=== PATIENT | female | born 1985 | race Caucasian/White ===

== ENCOUNTER 2020-06-08 01:18 | Outpatient (CLI) | payer OTHER, SELFPAY ==
[2020-06-08 18:35] LABS: SARS-CoV-2 RNA PCR Negative
== END 2020-06-08 01:19 | disposition home or self-care (01) ==
LOC: ANHCOVIDDT 01:19
PROVIDERS: Visit Provider Surgery Plastic and Reconstructive Surgery
DX: Z01.812 Encounter for preprocedural laboratory examination (principal); Z20.828 Contact with and (suspected) exposure to other viral communicable diseases
CPT/HCPCS: 87635; C9803; U0003

== ENCOUNTER 2020-06-10 06:04 | Day surgery (SDC) | payer OTHER, SELFPAY ==
[2020-05-31 10:35] VITALS: BMI 22.6
[2020-06-10] VITALS (8 sets, daily range): BP systolic 98–116; BP diastolic 72–86; PULSE 49–74; RESP 12–20; TEMP 36.4–36.5; O2SAT 92–100; BMI 24.5
[2020-06-10] MEDS: LACTATED RINGERS 1,000 ML 30 ML IV CONT ×2 (06:40→10:17)
--- NOTE | 2020-06-10 06:49 | WPDANESEPPF ---
Anes - Initial Pre Proc Eval Procedure: Operation Date: 06/10/20 07:30 Proposed Procedures p Bilateral Breast Implant Exchange - Jordin Oneil MD s Bilateral Breast Mastopexy - Jordin Oneil MD Date/Time: 06/10/20 06:49 Surgeon: Jordin Oneil MD Pre Op Diagnosis: Skin laxity Patient Data Age: 34 Gender: F Height: 5 ft 3.5 in Weight: 64 kg Last Vital Signs Temp 36.4 C L 06/10/20 06:21 Pulse 67 06/10/20 06:21 Resp 14 06/10/20 06:21 BP 111/80 06/10/20 06:21 Pulse Ox 92 06/10/20 06:21 Allergies Allergy/AdvReac Type Severity Reaction Status Date / Time No Known Allergies Allergy Verified 06/10/20 06:05 Home Medications Medication Instructions Recorded Confirmed Type No Home Medications 06/09/20 06/09/20 History Patient hx anesthesia problems: none Family hx anesthesia problems: none PMFSH Family History Family History Other Hypertension Social History Social History Smoking status: Never smoker Alcohol intake: never Alcohol use details: RARE ALCOHOL INTAKE Substance use: never Substance use type: does not use Living arrangements: alone Gender identity (if verbalized by the patient): Female Sexual Orientation (if Verbalized by the Patient): Straight or Heterosexual Spiritual care concerns: No Anes - Eval Final PreProcedure Day of Procedure 06/10/20 06:49 Patient weight: normal Heart: regular rate and rhythm Lungs: clear to auscultation Airway: Mallampati scale class II Neurological: alert and oriented Last oral intake: >/= 8 hours ASA classification: I Emergent: no Anesthetic plan: proceed Anesthesia type and monitoring: general LMA and standard monitoring Informed Consent: The patient's anesthetic plan and its attendant risks and benefits were discussed with the patient/family/POA. Questions were solicited and answers provided to the satisfaction of the patient/family/POA.
--- NOTE | 2020-06-10 07:12 | WPDHPUPDATE1 ---
History and Physical Update Update Date/Time: 06/10/20 07:12 History and Physical has been reviewed, including an updated exam of the patient. There are NO changes in the patient's condition. Risks, benefits, and alternatives have been discussed and questions answered. Patient agrees to proceed with procedure.
[2020-06-10] MEDS: ceFAZolin 2 GM/D5W 50 ML 2 GM/50 ML BAG IVPB (07:15)
[2020-06-10] MEDS: LIDO 1%/EPINEPHRINE 1:100,000 20 ML VIAL 30 ML INFILTRATE (07:50)
--- NOTE | 2020-06-10 10:06 | PM.PROC ---
Procedure Note - Detailed Date of procedure: 06/10/20 Pre-op diagnosis: Skin laxity History breast augmentation Post-op diagnosis: same Procedure performed: Patient was marked in the preoperative holding area with her verification. She was taken to the operating room placed supine on the operating room table. Anesthesia was provided by anesthesiology and prepped and draped in standard sterile fashion. Surgical time-out was taken. 1% lidocaine and 0.25% Marcaine with epinephrine was used to provide a field block. Tegaderm nipple Martinez were placed. I made a vertical incision along the planned vertical scar. Dissection was continued down until the implant was identified and this was removed. These were submuscular smooth implants. I irrigated with more than 3 L total volume of saline solution on TUR tubing. Verified hemostasis. I performed lateral popcorn capsulorrhaphy which she had significant more lateral migration on the left than she did on the right. Further we or narrowing her base diameter slightly as she did not like the with the her previous implants. Irrigated with triple antibiotic Betadine solution. Wash my gloves. Used a Rowell funnel in a no-touch technique in the implants were introduced into the pocket. This was closed with 2-0 Vicryl. I then tailor tacked the breast into place and removed the Tegaderm nipple Amrtinez. She was placed in a sitting position. I marked out my nipple-areolar complex at 42 mm. On the left this had to be widened slightly as she would have had a residual areola in the mastopexy scar. She has a significant asymmetry preoperatively with the left nipple lower than the right as well as more glandular ptosis on the left. I de-epithelialized the superior pedicles bilaterally. I removed the central keel of tissue left greater than the right. I de-epithelialized the inferior aspect and then closed using 2-0 Vicryl followed by 3-0 Monocryl in the vertical as well as around the areola and 3-0 strata fix on the IMF. This is followed by running subcuticular 4-0 Monocryl and tissue glue. Prior to final closure I did place her again in a sitting position to verify symmetry. Fluffs and a surgical bra were placed. Patient was taken the PACU without difficulty. All instrument sponge counts were correct at the end of the case. Implants: Natvelmae Inspira SoftTouch 310cc Right: REF SSM-310 [id number] Left: REF SSM-310 SN [id number] Anesthesia: GLMA Surgeon: Jordin Oneil MD Estimated blood loss (mL): 50 Drains: No Packing: No Pathology: none sent Complications: No immediate complications Condition: stable Disposition: PACU
[2020-06-10] MEDS: ONDANSETRON INJ 4 MG/2 ML VIAL IV PUSH (10:31)
[2020-06-10] MEDS: SCOPOLAMINE 1.5 MG PATCH TRANSDERM (10:35)
--- NOTE | 2020-07-01 07:18 | WPDANESPN ---
Anes - Prog Note Post-Op Date/Time: 07/01/20 07:18 Cardiovascular status: normal Respiratory status: normal Airway patency: baseline Mental status: baseline Post-Op hydration status: normal Vital Signs: Last Vital Signs Temp 36.5 C 06/10/20 10:17 Pulse 49 L 06/10/20 11:23 Resp 14 06/10/20 11:23 BP 116/79 06/10/20 11:23 Pulse Ox 100 06/10/20 11:23 Pain Score (VAS): 1 Post-procedural complaints: none Patient Feedback: Patient satisfied with anesthetic care. Other Findings: late entry
== END 2020-06-10 11:45 | disposition home or self-care (01) ==
PROVIDERS: Visit Provider Surgery Plastic and Reconstructive Surgery
PROC: (CPT 19342; principal; 2020-06-10 07:30)
PROC: (CPT 19316; 2020-06-10 07:30)
DX: N64.59 Other signs and symptoms in breast (principal); Z98.82 Breast implant status
CPT/HCPCS: 19316; 19340; 80305

== ENCOUNTER 2023-02-09 05:58 | Day surgery (SDC) | payer OTHER, SELFPAY ==
[2022-11-22 12:20] VITALS: BMI 23.0
[2023-01-31 09:19] VITALS: BMI 23.0
--- NOTE | 2023-02-08 15:38 | WPDANESEPPF ---
Anes - Initial Pre Proc Eval Procedure: Operation Date: 02/09/23 07:30 Proposed Procedures p Raising Right Areola - Jordin Oneil MD s Left Breast Implant Exchange - Jordin Oneil MD Date/Time: 02/08/23 15:38 Surgeon: Jordin Oneil MD Pre Op Diagnosis: History of Breast Augmentation Patient Data Age: 37 Gender: F Height: 1.6 m Weight: 59 kg Allergies Allergy/AdvReac Type Severity Reaction Status Date / Time No Known Allergies Allergy Verified 01/31/23 09:07 Home Medications Medication Instructions Recorded Confirmed Type ergocalciferol (vitamin D2) 1,250 1,250 mcg PO HS 01/31/23 01/31/23 History mcg (50,000 unit) capsule (Vitamin D2) fluoxetine 20 mg capsule 20 mg PO HS 01/31/23 01/31/23 History Patient hx anesthesia problems: none Family hx anesthesia problems: none Results Review: All pre-operative results and documents have been reviewed as part of the pre-operative evaluation. [facility] Past Medical History Medical History (Updated 02/08/23 @ 15:39 by Carlos London MD) Anxiety Surgical History Surgical History (Updated 02/08/23 @ 15:39 by Carlos London MD) History of breast augmentation Family History Family History Other Hypertension Social History Social History Smoking status: Never smoker Second hand tobacco smoke exposure: No Alcohol intake: current Drinks per week: 0 Alcohol use details: ONCE A MONTH Substance use: never Substance use type: does not use Living arrangements: with family Gender identity (if verbalized by the patient): Female Sexual Orientation (if Verbalized by the Patient): Straight or Heterosexual Spiritual care concerns: No Anes - Eval Final PreProcedure Day of Procedure 02/08/23 15:38 Patient weight: normal Heart: regular rate and rhythm Lungs: clear to auscultation Airway: Mallampati scale class II Neurological: alert and oriented Last oral intake: >/= 8 hours ASA classification: I Emergent: no Anesthetic plan: proceed Anesthesia type and monitoring: general LMA and standard monitoring Results Review: All pre-operative results and documents have been reviewed as part of the pre-operative evaluation. Informed Consent: The patient's anesthetic plan and its attendant risks and benefits were discussed with the patient/family/POA. Questions were solicited and answers provided to the satisfaction of the patient/family/POA.
[2023-02-09] VITALS (7 sets, daily range): BP systolic 106–118; BP diastolic 76–91; PULSE 62–84; RESP 14–20; TEMP 36.4–37.1; O2SAT 97–100
[2023-02-09] MEDS: SCOPOLAMINE 1.5 MG PATCH TRANSDERM (06:33)
[2023-02-09] MEDS: LACTATED RINGERS 1,000 ML 30 ML IV CONT ×2 (06:33→09:00)
--- NOTE | 2023-02-09 07:03 | WPDHPUPDATE1 ---
History and Physical Update Update Date/Time: 02/09/23 07:03 History and Physical has been reviewed, including an updated exam of the patient. There are NO changes in the patient's condition. Risks, benefits, and alternatives have been discussed and questions answered. Patient agrees to proceed with procedure.
--- NOTE | 2023-02-09 07:04 | W.PM.PROC2 ---
Procedure Note - Detailed Date of Procedure 02/09/23 Pre-op Diagnosis History of Breast Augmentation Post-op Diagnosis Same Procedure Performed 1. Raise right areola 2. Left breast implant exchange Surgeon Jordin Oneil MD Anesthesia General Findings Left previous implant: SSM-310 intact. New left implant: REF# [id number] Right areola superior pedicle. Description of Procedure Preoperatively the risks, benefits, alternatives were discussed in extensive detail. I wanted to be very realistic about the risks involved as well as expectations. I was very upfront that she will never have perfect symmetry and she states she understands this. I was clear about how we could actually make her worse. Answered all questions to satisfaction. Voiced a clear understanding. Consent obtained. She was taken the operating room placed supine on the operating room table. Anesthesia provided by anesthesiology and prepped and draped in a standard sterile fashion. Surgical time-out was taken. 1% lidocaine and 0.25% Marcaine with epinephrine was used to provide a field block. Tegaderm nipple mendoza were placed. Fifteen blade used to excise the previous left IMF scar central. Dissection was continued down until the capsule were identified and entered. I then copiously irrigated with 3 L of saline solution on TUR tubing. Verified strict hemostasis. I then irrigated with Betadine containing solution. Using a no-touch technique and a Rowell funnel the implant was introduced into the pocket. We used a couple implants to determine final size as I wasn't happy with first selection. Also secured the lateral fold with 2-0 quill. Verfied the size. This was closed with 2-0 PDS followed by 3-0 Monocryl and a running subcuticular 4-0 Monocryl followed by tissue glue. On the right breast we tailor tacked into placed based on pre-operative markings. Placed in a sitting position and marked the NAC at 38 mm. Placed supine. Depithelizied the superior pedicle. Closed with 3-0 Monocryl, running subcuticular 4-0 monocryl and tissue glue. Dressings were placed. She was woken taken to the PACU without difficulty. All instrument sponge counts were correct at the end of the case. Estimated Blood Loss 25 Drains No Packing No Pathology None sent Complications No immediate complications Condition Stable Disposition PACU
[2023-02-09] MEDS: TRANEXAMIC ACID 1,000 MG/10 ML AMPUL 1000 MG IV PUSH (07:28)
[2023-02-09] MEDS: ceFAZolin SODIUM 2 GM/20 ML SW SYRINGE IV PUSH (07:28)
[2023-02-09] MEDS: NACL 0.9% IRRIG POUR BOTTLE 900 ML, GENTAMICIN SULFATE INJ 160 MG, ceFAZolin 2 GM, POVI... IRRIGATION (07:59)
--- NOTE | 2023-02-09 09:21 | SUR.PHASEI ---
PT RESTING QUIETLY. STATES MILD DISCOMFORT, DENIES NEED FOR PAIN MEDS AT THIS TIME. PT GIVEN A FEW ICE CHIPS PER REQUEST. DENIES NAUSEA.
--- NOTE | 2023-02-09 10:30 | SUR.PHASEII ---
1010 pt states shes ready to go home/instruction provided/denies pain. anabelle. susan d/i
--- NOTE | 2023-02-09 14:46 | WPDANESPN ---
Anes - Prog Note Post-Op Date/Time: 02/09/23 14:46 Cardiovascular status: normal Respiratory status: normal Airway patency: baseline Mental status: baseline Post-Op hydration status: normal Vital Signs: Last Vital Signs Temp 36.4 C L 02/09/23 09:00 Pulse 65 02/09/23 10:12 Resp 20 02/09/23 10:12 BP 114/79 02/09/23 10:12 Pulse Ox 99 02/09/23 10:12 O2 Del Method Room Air 02/09/23 10:12 O2 Flow Rate 3 02/09/23 09:15 Pain Score (VAS): 1 I/O: Intake & Output 02/08/23 02/09/23 02/09/23 23:59 07:59 15:59 Intake Total 400 Balance 400 Post-procedural complaints: none Patient Feedback: Patient satisfied with anesthetic care.
== END 2023-02-09 10:25 | disposition home or self-care (01) ==
PROVIDERS: PCP Internal Medicine; Visit Provider Surgery Plastic and Reconstructive Surgery
PROC: (CPT 19316; principal; 2023-02-09 07:30)
PROC: (CPT 19342; 2023-02-09 07:30)
DX: Z41.1 Encounter for cosmetic surgery (principal)
CPT/HCPCS: 19342

== ENCOUNTER → 2023-11-12 15:18 | Outpatient (CLI) | payer BC, SELFPAY ==
--- NOTE | ~2023-11-12 | US_ITS ---
EXAMINATION: US transvaginal DATE: 11/12/2023 INDICATION: Assess IUD placement TECHNIQUE: Multiple endovaginal sonographic images of the pelvis were obtained. COMPARISON: None. FINDINGS: The uterus measures 9.7 x 4.4 x 5.6 cm. The endometrial complex measures 3 mm. The IUD is i n expected position.. The right ovary measures 3.7 x 1.8 x 3.3 cm. The left ovary measures 2.2 x 1.3 x 2.0 cm. There is normal vascular flow in the ovaries. There is no free fluid in the pelvis. IMPRESSION: 1. IUD in expected position. Reviewed, dictated and finalized at location [facility]. [employer]TAIN
== END ==
PROVIDERS: PCP Nurse Practitioner; Visit Provider Nurse Practitioner
DX: T83.32XA Displacement of intrauterine contraceptive device, initial encounter (principal)
CPT/HCPCS: 76830

== ENCOUNTER 2023-12-11 23:12 | Emergency (ER) | payer BC, SELFPAY ==
--- NOTE | ~2023-12-11 | XR_ITS ---
Portable chest x-ray Comparison: None Clinical History: Cough Findings: Lungs are clear, without focal consolidation or pleural effusion. Cardiomediastinal silho uette is unremarkable. Bones and soft tissues are unremarkable. Impression: Normal chest Reviewed, dictated and finalized at [facility]. HOE OPERATOR Impression: Normal chest
--- NOTE | 2023-12-11 23:17 | ECG_ITS ---
Measurements Intervals [place] Rate: 75 P: 57 WV: 151 QRS: 32 QRSD: 82 T: 74 QT: 369 QTc: 413 Interpretive Statements SINUS RHYTHM POSSIBLE LEFT ATRIAL ENLARGEMENT [-0.1mV P WAVE IN V1/V2] LOW QRS VOLTAGE IN PRECORDIAL LEADS [QRS DEFLECTION < 1.0 mV IN CHEST LEADS] SEPTAL MYOCARDIAL INFARCTION , PROBABLY OLD [40+ ms Q WAVE IN V1/V2] ABNORMAL ECG NO PREVIOUS ECG AVAILABLE FOR COMPARISON Electronically Signed On 12-12-2023 11:46:18 PILE TRIMMER by Adam Soto M.D.
[2023-12-11 23:21] VITALS: BP 116/74; PULSE 78; RESP 25; TEMP 36.8; O2SAT 100
[2023-12-12] VITALS (15 sets, daily range): BP systolic 104–113; BP diastolic 84–91; PULSE 72–98; RESP 12–20; O2SAT 90–100
[2023-12-12 00:11] LABS: Strep Group A RT-PCR NOT DETECTED (Negative)
--- NOTE | 2023-12-12 01:26 | ED.GENADULT ---
[facility] - General Adult General Chief complaint: Upper Respiratory Infection Stated complaint: sob, lost voice Time Seen by Provider: 12/12/23 01:17 Source: patient Mode of arrival: ambulatory Limitations: no limitations History of Present Illness HPI narrative: This is a 38-year-old female who presents to the ED with chief complaint of dyspnea and sore throat x2 days. Reports she was diagnosed with flu B recently. Initially started with just some congestion, body aches and chills and now has progressed to more shortness of breath, wheezing and cough. Reports I feel like I cannot get any air. ? Reports pain with inspiration. Denies any history of asthma. Denies any history of blood clot, chronic lung disease or heart disease. No history of immunosuppressive condition Related Data Home Medications Medication Instructions Recorded Confirmed ergocalciferol (vitamin D2) 1,250 1,250 mcg PO HS 01/31/23 02/09/23 mcg (50,000 unit) capsule (Vitamin D2) fluoxetine 20 mg capsule 20 mg PO HS 01/31/23 02/09/23 Allergies Allergy/AdvReac Type Severity Reaction Status Date / Time No Known Allergies Allergy Verified 12/11/23 23:27 Review of Systems Review of Systems: All systems as dictated in [facility] Past Medical History Medical History (Updated 12/12/23 @ 03:26 by Toni Wynn PA-C) Anxiety Surgical History Surgical History (Updated 02/08/23 @ 15:39 by Carlos London, ) History of breast augmentation Family History Family History Other Hypertension Social History Social History Smoking status: Never smoker Second hand tobacco smoke exposure: No Alcohol intake: current Drinks per week: 0 Alcohol use details: ONCE A MONTH Substance use: never Substance use type: does not use Living arrangements: with family Gender identity (if verbalized by the patient): Female Sexual Orientation (if Verbalized by the Patient): Straight or Heterosexual Spiritual care concerns: No Exam Narrative: GENERAL: Well-appearing, well-nourished, and in no acute distress. HEAD: Normocephalic, atraumatic. EYES: PERRLA and EOMI. ENT: Nares clear, no rhinorrhea or epistaxis. Mucous membranes moist. Oropharynx without tonsillar hypertrophy exudate or other lesions. NECK: Supple. No adenopathy or masses. CHEST: Mildly increased work of breathing. Slightly tachypneic. Coughing on exam. Diffuse expiratory wheezes throughout. Sats 100% room air. HEART: Regular rate and rhythm. No murmur heard. Normal peripheral pulses. ABDOMEN: Soft, nontender, nondistended, normal active bowel sounds. MSK: Normal range of motion. No edema. SKIN: Warm, dry, no rash. NEURO: Alert and oriented x3. No focal deficits. PSYCH: Normal mood and affect. Course Course Emergency Course: Re-evaluation: Wheezing and work of breathing has resolved after her long breathing treatment. Vital Signs Vital signs: Vital Signs Temperature 98.2 F 12/11/23 23:21 Pulse Rate 78 12/11/23 23:21 Respiratory Rate 25 H 12/11/23 23:21 Blood Pressure 116/74 12/11/23 23:21 Pulse Oximetry 100 12/11/23 23:21 Oxygen Delivery Room Air 12/11/23 23:21 Temperature 98.2 F 12/11/23 23:21 Pulse Rate 93 12/12/23 02:50 Respiratory Rate 16 12/12/23 02:50 Blood Pressure 107/89 12/12/23 01:16 Pulse Oximetry 90 12/12/23 02:15 Oxygen Delivery Room Air 12/11/23 23:21 Medical Decision Making MDM Narrative Medical decision making narrative: This is a 38-year-old female who presents to the ED after having positive flu B test and for chief complaint of shortness of breath and wheezing. Vitals show initial slight tachypnea but oxygen saturation is normal. Exam shows diffuse wheezing. EKG shows sinus rhythm without acute ischemic findings. Chest x-ray is unremarkable. White count is normal
[2023-12-12] MEDS: ALBUTEROL SULFATE NEB 2.5 MG/3 ML INH 10 MG INHALATION (01:32)
[2023-12-12] MEDS: IPRATROPIUM BR 0.02% INH SOLN 0.5 MG/2.5 ML VIAL 2 MG INHALATION (01:32)
[2023-12-12 02:48] LABS: Basophils Percent Auto 0.2 % (0.2-1.2); Eosinophils Percent Auto 0.3 % (0-4.4); Hematocrit 39.6 % (37.0-47.0); Hemoglobin 12.9 g/dL (12.0-15.0); Immature Granulocyte Absolute 0.02 K/mm3 (0.00-0.031); Immature Granulocyte Percent A 0.3 % (0-0.5); Lymphocytes Absolute Auto 1.52 K/mm3 (0.9-3.2); Lymphocytes Percent Auto 25.4 % (18.3-44.2); Mean Corpuscular HGB Conc 32.6 g/dl (32-36); Mean Corpuscular Hemoglobin 30.9 pg (26-34); Mean Platelet Volume 10.2 fl (7.4-10.4); Monocytes Absolute Auto 0.3 K/mm3 (0.1-0.6); Monocytes Percent Auto 5.5 % (2.6-8.5); Neutrophils Absolute Auto 4.1 K/mm3 (1.3-6.7); Neutrophils Percent Auto 68.3 % (45.5-73.1); Platelet Count Result 170 k/mm3 (150-375); Red Blood Count 4.17 M/mm3 (4.2-5.4); Red Cell Distribution Width 11.8 % (11.5-14.5)
[2023-12-12 02:53] LABS: Alanine Aminotransferase 37 U/L (6-35); Albumin Level 4.3 g/dL (3.5-5.1); Alkaline Phosphatase 60 U/L (38-126); Anion Gap 5 mmol/L (8-16); Aspartate Amino Transferase 39 U/L (14-36); Bilirubin,Total 0.4 mg/dL (0.2-1.3); Blood Urea Nitrogen 15 mg/dL (7-17); CRP 0.9 mg/dL (<1.0); Calcium 9.3 mg/dL (8.4-10.2); Carbon Dioxide 28 mmol/L (22-30); Chloride 104 mmol/L (98-107); Estimated CRCL calculation 95 ml/min; Estimated Glomerular Filt Rate > 60; Glucose 120 mg/dL (65-110); Potassium 3.7 mmol/L (3.4-5.0); Sodium 137 mmol/L (137-145)
[2023-12-12 04:20] LABS: Influenza A QL RT-PCR Negative (Negative); Influenza B QL RT-PCR Positive (Negative); RSV RNA, RT-PCR Negative (Negative); SARS-CoV-2 RNA PCR Negative (Negative)
== END 2023-12-12 04:04 | disposition home or self-care (01) ==
PROVIDERS: Emergency Medicine; Emergency Provider Physician Assistant; PCP Nurse Practitioner
DX: J06.9 Acute upper respiratory infection, unspecified (principal); J40 Bronchitis, not specified as acute or chronic; Z20.822 Contact with and (suspected) exposure to COVID-19; F41.9 Anxiety disorder, unspecified
CPT/HCPCS: 36415; 71045; 80053; 85025; 86140; 87637; 87651; 93005; 94640; 99283

== ENCOUNTER 2024-10-18 14:28 | Emergency (ER) | payer BC, SELFPAY ==
[2024-10-18] VITALS (14 sets, daily range): BP systolic 97–111; BP diastolic 74–87; PULSE 66–97; RESP 14–18; TEMP 36.5; O2SAT 91–100
--- NOTE | 2024-10-18 15:01 | ED_ITS ---
HPI - Nausea/Vomiting/Diarrhea General Chief complaint: Nausea/Vomiting/Diarrhea Stated complaint: diarrhea x 12 days Time Seen by Provider: 10/18/24 14:38 History of Present Illness HPI Narrative: 39-year-old female with no pertinent past medical history presenting to the emergency room with a chief complaint of diarrhea for last 12 days. She was recently treated with oral antibiotics including amoxicillin for a sinus infection, took 2 days of the antibiotics and then had to stop and she was developing diffuse watery diarrhea. She took antibiotics on the 7th and 8th of this month. She states she has been having voluminous watery diarrhea with some mucus in it since that date. Endorses a 9 lb weight loss. Intermittent cramping abdominal pain during the diarrhea. No history of IBS or inflammatory bowel disease. No abdominal surgeries sign appendix removal in childhood. Patient describes a foul odor and mucus and states that she was concerned about C diff based on her recent antibiotic use. She was getting stool studies done at her PCP's office however the insurance declined and her PCPs office was closed today and they were referred to the emergency department instead. But denies any melena, dark tarry stools or blood in the stools. No nausea, vomiting, fever, chills or back pain. Related Data Home Medications ?Medication ?Instructions ?Recorded ?Confirmed ?Last Taken ?Type ergocalciferol (vitamin D2) 1,250 1,250 mcg PO HS 01/31/23 02/09/23 01/30/23 History mcg (50,000 unit) capsule (Vitamin D2) fluoxetine 20 mg capsule 20 mg PO HS 01/31/23 02/09/23 01/30/23 History Allergies Allergy/AdvReac Type Severity Reaction Status Date / Time No Known Allergies Allergy Verified 10/18/24 14:41 Review of Systems 2 Review of Systems: As [facility] Past Medical History Medical History Anxiety Surgical History Surgical History History of breast augmentation Family History Family History Other Hypertension Social History Social History Smoking status: Never smoker Second hand tobacco smoke exposure: No Alcohol intake: current Drinks per week: 0 Alcohol use details: ONCE A MONTH Substance use: never Substance use type: does not use Living arrangements: with family Gender identity (if verbalized by the patient): Female Sexual Orientation (if Verbalized by the Patient): Straight or Heterosexual Spiritual care concerns: No Exam 2 Narrative: GENERAL: [Well-appearing, well-nourished, and in no acute distress.] HEAD: [Normocephalic, atraumatic.] EYES: [PERRLA and EOMI.] ENT: Nares clear, no rhinorrhea or epistaxis. Mucous membranes moist. NECK: Supple. CHEST: [Clear to auscultation. No respiratory distress.] HEART: [Regular rate and rhythm]. No murmur heard. [Normal peripheral pulses.] ABDOMEN: [Soft, nondistended], [nontender], [No rigidity or guarding] EXTREMITIES: Normal range of motion. [No edema.] SKIN: Warm, dry, no rash. NEURO: [No focal deficits]. Alert and oriented [x3.] PSYCH: [Normal mood and affect.] Course Vital Signs Vital signs: Vital Signs Temperature 36.5 C 10/18/24 14:30 Pulse Rate 97 10/18/24 14:30 Respiratory Rate 14 10/18/24 14:30 Blood Pressure 107/75 10/18/24 14:30 Pulse Oximetry 100 10/18/24 14:30 Oxygen Delivery Room Air 10/18/24 14:30 Temperature 36.5 C 10/18/24 14:30 Pulse Rate 80 10/18/24 14:38 Respiratory Rate 18 10/18/24 14:38 Blood Pressure 108/79 10/18/24 14:38 Pulse Oximetry 100 10/18/24 14:38 Oxygen Delivery Room Air 10/18/24 14:38 MDM - Nausea/Vomiting/Diarrhea MDM Narrative Medical decision making narrative: 39-year-old female presenting with diffuse watery diarrhea with mucus for last 12 days. Recently been on antibiotics for 2 days prior to the onset of her symptoms. Concerned that she has had C diff. No history of C diff before, no history of recent abdominal surgeries. No recent hospital visits or illnesses otherwise. Reassuring vital signs which he does appear slightly dehydrated. Blood pressure 107/75, no tachycardia, no tachypnea or fever. She has a soft nontender nondistended abdomen. Was trying to get outpatient stool studies at [facility] done but they stated the insurance would not cover it so she went to her PCP and their office was closed she was referred to the ED today. Patient was given fluid bolus for hydration, CBC, CMP, C diff panel and some stool studies were sent off including ova and parasites, calprotectin, culture. Blood work was reassuring without any leukocytosis or anemia. Normal electrolytes, normal renal function panel. Negative test. Patient's C diff panel came back negative. The remaining tests are send out and will take several days and I did tell this to the patient and she will have to request medical records or sign up for the patient portal to see the results and discuss them with her primary care provider which is located within the [facility] system. We will send the patient home with some loperamide for her diarrhea and encouraged hydration and a high-fiber diet. Patient is stable for discharge at this time. Differential Diagnosis Differential diagnosis: Likely traveler's diarrhea, food poisoning, gastroenteritis, clostridium difficile infection, drug-induced nausea and vomiting and dehydration Medical Records Attestation: I reviewed the patient's medical records. Lab Data Attestation: I reviewed the patient's lab results. 10/18/24 15:14 10/18/24 15:14 Labs: Lab Results 10/18/24 10/18/24 Range/Units 15:14 15:23 WBC 5.0 (4.5-10.0) K/mm3 RBC 4.73 (4.2-5.4) M/mm3 Hgb 14.7 (12.0-15.0) g/dL Hct 43.7 (37.0-47.0) % MCV 92.4 (80-100) fl MCH 31.1 (26-34) pg MCHC 33.6 (32-36) g/dl RDW 11.9 (11.5-14.5) % Plt Count 291 D (150-375) k/mm3 MPV 9.6 (7.4-10.4) fl Immature Gran % (Auto) 0.4 (0-0.5) % Neut % (Auto) 72.7 (45.5-73.1) % Lymph % (Auto) 19.1 (18.3-44.2) % Wharton % (Auto) 6.6 (2.6-8.5) % Eos % (Auto) 0.6 (0-4.4) % Baso % (Auto) 0.6 (0.2-1.2) % Lymph # (Auto) 0.96 (0.9-3.2) K/mm3 Wharton # (Auto) 0.3 (0.1-0.6) K/mm3 Eos # (Auto) 0.0 (0-0.3) K/mm3 Baso # (Auto) 0.0 (0.0-0.1) K/mm3 Abs Immat Gran (auto) 0.02 (0.00-0.031) K/mm3 Absolute Neuts (auto) 3.7 (1.3-6.7) K/mm3 Absolute Nucleated RBC 0.000 (0.0-0.012) K/mm3 Nucleated RBC % 0.0 (0.0-0.2) % Sodium 139 (137-145) mmol/L Potassium 3.4 (3.4-5.0) mmol/L Chloride 101 (98-107) mmol/L Carbon Dioxide 29 (22-30) mmol/L Anion Gap 9 (4-12) mmol/L BUN 14 (7-17) mg/dL Creatinine 0.60 L (0.7-1.0) mg/dL Estim Creat Clear Calc 100 ml/min Estimated GFR > 60 (59 - ) Glucose 110 (65-110) mg/dL Calcium 10.1 (8.4-10.2) mg/dL Total Bilirubin 0.6 (0.2-1.3) mg/dL AST 63 H (14-36) U/L ALT 78 H (6-35) U/L Alkaline Phosphatase 69 (38-126) U/L Total Protein 9.0 H (6.3-8.2) g/dL Albumin 4.9 (3.5-5.1) g/dL Lipase 76 (23-300) U/L POC Urine HCG, Qual Negative (Negative) Stool Calprotectin Cancelled Stool Rotavirus Antigen Cancelled C. difficile (PCR) Negative (NEGATIVE) Discharge Plan Discharge Clinical Impression: Diarrhea Patient Disposition: Home, Self-Care Condition: Stable Instructions: Antibiotic Form, Loperamide (By mouth), Acute Diarrhea (ED), Nutrition Tips for Relief of Diarrhea (ED) Additional Instructions: Your stool studies are send outs and will need to be followed up with her primary care provider. Either sign up for the patient portal or request them from medical records. Your C diff panel was negative. Your diarrhea still could be secondary to recent antibiotics as it does upset the GI tract but your primary care provider will have to continue investigating outpatient. We will send you home with some loperamide for symptom control. Return with any new or worsening concerns at any time. Patient Language: Egyptian Prescriptions: New loperamide [Anti-Diarrheal (loperamide)] 2 mg capsule 2 mg PO Q6H PRN (Reason: loose stool) Qty: 14 0RF No Action albuterol sulfate 90 mcg/actuation HFA aerosol inhaler 2 puff inhalation QID PRN (Reason: shortness of breath or wheezing) Qty: 6.7 0RF methylprednisolone [Methylpred DP] 4 mg tablets,dose pack See Rx Instructions .ROUTE .COMPLEX Qty: 21 0RF Rx Instructions: orally per package directions ergocalciferol (vitamin D2) [Vitamin D2] 1,250 mcg (50,000 unit) capsule 1,250 mcg PO HS fluoxetine 20 mg capsule 20 mg PO HS Follow-up/Referrals: Arik,MD Dorian [Primary Care Provider] - Time of Disposition: 18:11
[2024-10-18] MEDS: LACTATED RINGERS 1,000 ML 999 ML IV CONT (15:12)
[2024-10-18 15:23] LABS: Basophils Percent Auto 0.6 % (0.2-1.2); Eosinophils Percent Auto 0.6 % (0-4.4); Hematocrit 43.7 % (37.0-47.0); Hemoglobin 14.7 g/dL (12.0-15.0); Immature Granulocyte Absolute 0.02 K/mm3 (0.00-0.031); Immature Granulocyte Percent A 0.4 % (0-0.5); Lymphocytes Absolute Auto 0.96 K/mm3 (0.9-3.2); Lymphocytes Percent Auto 19.1 % (18.3-44.2); Mean Corpuscular HGB Conc 33.6 g/dl (32-36); Mean Corpuscular Hemoglobin 31.1 pg (26-34); Mean Corpuscular Volume 92.4 fl (80-100); Mean Platelet Volume 9.6 fl (7.4-10.4); Monocytes Absolute Auto 0.3 K/mm3 (0.1-0.6); Monocytes Percent Auto 6.6 % (2.6-8.5); Neutrophils Absolute Auto 3.7 K/mm3 (1.3-6.7); Neutrophils Percent Auto 72.7 % (45.5-73.1); Platelet Count Result 291 k/mm3 (150-375); Red Blood Count 4.73 M/mm3 (4.2-5.4); Red Cell Distribution Width 11.9 % (11.5-14.5)
[2024-10-18 15:24] LABS: BEDSIDEPREGUCG Negative (Negative)
[2024-10-18 15:37] LABS: Alanine Aminotransferase 78 U/L (6-35); Albumin Level 4.9 g/dL (3.5-5.1); Alkaline Phosphatase 69 U/L (38-126); Anion Gap 9 mmol/L (4-12); Aspartate Amino Transferase 63 U/L (14-36); Bilirubin,Total 0.6 mg/dL (0.2-1.3); Blood Urea Nitrogen 14 mg/dL (7-17); Calcium 10.1 mg/dL (8.4-10.2); Carbon Dioxide 29 mmol/L (22-30); Chloride 101 mmol/L (98-107); Estimated CRCL calculation 100 ml/min; Estimated Glomerular Filt Rate > 60; Glucose 110 mg/dL (65-110); Lipase 76 U/L (23-300); Potassium 3.4 mmol/L (3.4-5.0); Sodium 139 mmol/L (137-145)
[2024-10-18 18:02] LABS: Toxigenic C. Diff NEGATIVE (NEGATIVE)
--- OUTSIDE RECORDS SUMMARY | 2024-10-25 22:32 | XMS_ITS | Encounter Summary ---
Author Organization [facility] Address [address] [place] [address] Care Team Providers Care Tug Boat Captain Name Role Phone Unknown, Notinfile Primary Care Provider Unavail able Encounter Details Date Type Department Care Team (Late st Contact Info) Description 04/12/2020 Telephone [facility] Orthopedics and Sports Medicine [address] [facility] [address] [address] Alessia Maravilla MA Social History Tobacco Use Types Packs/Day Years Used Date Smoking Tobacco: Never Smokeless Tobacco: Never Comments Unknown Sex and Gender Information Value Date Recorded Sex Assigned at Not on file Legal Sex Female 2:40 PM CDT Gender Identity Not on file Sexual Orientation Not on file documented as of this encounter Miscellaneous Notes * Telephone Encounter - Alessia Maravilla MA - 04/14/2020 11:54 AM CDT Called patient, had to leave a message. * Telephone Encounter - Lillian Garcia - 04/13/2020 8:34 AM CDT Please have her drop of her disc thank you * Telephone Encounter - Alessia Maravilla MA - 04/12/2020 4:14 PM CDT Patient called and would like her MRI results? Didn't know if you wanted her to drop off disc or just go off Report? Please advise. documented in this encounter Plan of Treatment Not on file documented as of this encounter Visit Diagnoses Not on filedocumented in this encounter Care Teams Tug Boat Captain Relationship Specialty Start Date End Date Unknown, Notinfile PCP - General 03/25/20 12/07/23 documented as of this encounter
--- OUTSIDE RECORDS SUMMARY | 2024-10-25 22:32 | XMS_ITS | Encounter Summary ---
Author Organization [facility] Address [address] [place] [address] Care Team Providers Care Cytogeneticist Name Role Phone Unknown, Notinfile Primary Care Provider Unavail able Unknown, Notinfile Unavailable Unavailable Encounter Details Date Type Department Care Team (Latest Contact Info) Description 10/04/2024 12:47 PM ROLLOUT MANAGER - 10/04/2024 11:59 PM ROLLOUT MANAGER Hospital Encounter [address] [address] Discharge Disposition: Discharge to home or self care Social History Tobacco Use Types Packs/Day Years Used Date Smoking Tobacco: Never Smokeless Tobacco: Never Personal Safety Answer Date Recorded Getting School Help Needed Not on file 12/08 Comments Unknown Sex and Gender Information Value Date Recorded Sex Assigned at Not on file Legal Sex Female 2:40 PM CDT Gender Identity Not on file Sexual Orientation Not on file documented as of this encounter Medications at Time of Discharge ALPRAZolam (XANAX) 2 mg tablet 12/05/2023 benzonatate (TESSALON) 100 mg capsuleIndication s:Cough Take 1 capsule (100 mg total) by mouth 3 (three) times a day as needed for cough 42 capsule 10/04/2024 FLUoxetine (PROzac) 20 mg capsule Take 1 capsule (20 mg total) by mouth daily amoxicillin-clavu lanate (AUGMENTIN) 875-125 mg per tabletIndications :Acute non-recurrent maxillary sinusitis Take 1 tablet by mouth 2 (two) times a day for 10 days 20 tablet 10/04/2024 10/14/2024 documented as of this encounter Discharge Disposition Disposition Code Departure Means Destination Discharge to home or self care documented in this encounter Plan of Treatment Not on file documented as of this encounter Procedures Procedure Name Priority Date/Time Associated Diagnosis Comments THROAT CULTURE Routine 10/04/2024 12:47 PM ROLLOUT MANAGER documented in this encounter Results * Throat culture Throat (10/04/2024 12:47 PM ROLLOUT MANAGER) Report Final Report: No growth of pathogens. Comment:Testing performed by : [facility], [address] [place]., [address] Throat 10/04/2024 12:4 7 PM ROLLOUT MANAGER 10/04/2024 11:50 PM ROLLOUT MANAGER Narrative ALINA Boland 10/06/2024 10:08 AM ROLLOUT MANAGER Testing performed by [facility] Microbiology Laboratory ([phone]). Sameera Guerrero NP LAB MICROBIOLOGY - GENERAL ORDERABLES Final Result ALINA [address] Department [place] [address] documented in this encounter Visit Diagnoses Not on filedocumented in this encounter Additional Health Concerns Infection Onset Date Last Indicated Resolved Time COVID: Suspected 10/04/2024 10/04/2024 10/05/2024 3:05 AM ROLLOUT MANAGER documented as of this encounter Care Teams Cytogeneticist Relationship Specialty Start Date End Date Unknown, Notinfile PCP - General 12/08/23 Unknown, Notinfile 12/08/23 documented as of this encounter
--- OUTSIDE RECORDS SUMMARY | 2024-10-25 22:32 | XMS_ITS | Referral Summary ---
Author Organization [address] [address] Care Team Providers Care Dredgemaster Name Role Phone Unknown, Notinfile Primary Care Provider Unavail able Unknown, Notinfile Unavailable Unavailable Encounters Date Type Department Care Team Description 10/04/2024 12:47 PM EVENT STAFF - 10/04/2024 11:59 PM EVENT STAFF [place] [address] Discharge Disposition: Discharge to home or self care 10/04/2024 12:15 PM EVENT STAFF Office Visit [facility] at [address] [address] Sameera Guerrero NP Acute cough (Primary Dx); Acute non-recurrent maxillary sinusitis from Last 3 Months Allergies No known active allergies Medications ALPRAZolam (XANAX) 2 mg tablet 12/05/2023 Active FLUoxetine (PROzac) 20 mg capsule Take 1 capsule (20 mg total) by mouth daily Active benzonatate (TESSALON) 100 mg capsuleIndicati ons:Cough Take 1 capsule (100 mg total) by mouth 3 (three) times a day as needed for cough 42 capsule 10/04/2024 Active amoxicillin-cla vulanate (AUGMENTIN) 875-125 mg per tabletIndicatio ns:Acute non-recurrent maxillary sinusitis Take 1 tablet by mouth 2 (two) times a day for 10 days 20 tablet 10/04/2024 10/14/20 24 Active Problems No known active problems Social History Tobacco Use Types Packs/Day Years Used Date Smoking Tobacco: Never Smokeless Tobacco: Never Personal Safety Answer Date Recorded Getting School Help Needed Not on file 12/08 Comments Unknown Sex and Gender Information Value Date Recorded Sex Assigned at Not on file Legal Sex Female 2:40 PM CDT Gender Identity Not on file Sexual Orientation Not on file Last Filed Vital Signs Vital Sign Reading Time Taken Comments Blood Pressure 116/76 10/04/2024 12:28 PM EVENT STAFF Pulse 79 10/04/2024 12:28 PM EVENT STAFF Temperature 36.7 ??C (98.1 ??F) 10/04/2024 12:[address] Respiratory Rate 16 10/04/2024 12:28 PM EVENT STAFF Oxygen Saturation 99% 10/04/2024 12:28 PM EVENT STAFF Inhaled Oxygen Concentration - - Weight 60.3 kg (133 lb) 10/04/2024 12:28 PM EVENT STAFF Height 161.3 cm (5' 3.5 ) 10/04/2024 12:28 PM CS T Body Mass Index 23.19 10/04/2024 12:28 PM EVENT STAFF Plan of Treatment Not on file Procedures Procedure Name Priority Date/Time Associated Diagnosis Comments THROAT CULTURE Routine 10/04/2024 12:47 PM EVENT STAFF POCT RAPID STREP Routine 10/04/2024 12:4 0 PM EVENT STAFF Acute non-recurrent maxillary sinusitis POC INFLUENZA A/B, COVID-19 ANTIGEN Routine 10/04/2024 12:39 PM EVENT STAFF Acute non-recurrent maxillary sinusitis from Last 3 Months Results * Throat culture Throat (10/04/2024 12:47 PM EVENT STAFF) Report Final Report: No growth of pathogens. Comment:Testing performed by : [facility], [address], [place]., [address] Throat 10/04/2024 12:4 7 PM EVENT STAFF 10/04/2024 11:50 PM EVENT STAFF Narrative BASIMNER CH - 10/06/2024 10:08 AM EVENT STAFF Testing performed by [facility]biology Laboratory ([phone]). Sameera Guerrero NP LAB MICROBIOLOGY - GENERAL ORDERABLES Final Result ALINA BARRETT [address] Department [place] [address] * POCT rapid strep A (10/04/2024 12:40 PM EVENT STAFF) Rapid Strep A, POC Negative Negative Swab 10/04/2024 12:4 0 PM EVENT STAFF Sameera Guerrero PHARMACOMETRICIAN POINT OF CARE TEST ORDERAB LES Final Result * POC Influenza A/B, COVID-19 antigen (10/04/2024 12:39 PM EVENT STAFF) Influenza A Ag, POC Negative Negative [facility] Influenza B Ag, POC Negative Negative [facility] COVID-19 Ag POC Presumptive Negative Presumptive Negative, Invalid [facility] Nasal 10/04/2024 12:3 9 PM EVENT STAFF Sameera Guerrero PHARMACOMETRICIAN POINT OF CARE TEST ORDERAB LES Final Result Performing Organization Address City/[facility]/ZIP Co de Phone Number [facility] [address] [place] [address], [facility] from Last 3 Months Insurance [place] Care Teams Dredgemaster Relationship Specialty Start Date End Date Unknown, Notinfile PCP - General 12/08/23 Unknown, Notinfile 12/08/23
--- OUTSIDE RECORDS SUMMARY | 2024-10-25 22:32 | XMS_ITS | Clinical Summary ---
Author Organization [address] Address [address] [place] [address] Care Team Providers Care External Grinder Name Role Phone Unknown, Notinfile Primary Care Provider Unavail able Unknown, Notinfile Unavailable Unavailable Allergies No known active allergies Medications ALPRAZolam [...] 24 Active Problems No known active problems Encounters Date Type Department Care Team Description 10/04/2024 12:47 PM ADVERTISING PRODUCTION MANAGER - 10/04/2024 11:59 PM ADVERTISING PRODUCTION MANAGER Hospital Encounter [address] [address] Discharge Disposition: Discharge to home or self care 10/04/2024 12:15 PM ADVERTISING PRODUCTION MANAGER Office Visit [facility] Care at [address] [address] Sameera Guerrero NP Acute cough (Primary Dx); Acute non-recurrent maxillary sinusitis from Last 3 Months Surgical History Surgery Date Site/Laterality Comments APPENDECTOMY BREAST BIOPSY Family History Medical History Relation Name Comments Heart disease Other Hypertension Other Relation Name Status Comments Other Social History Tobacco Use Types Packs/Day Years Used Date Smoking Tobacco: Never Smokeless Tobacco: Never Personal Safety Answer Date Recorded Getting School Help Needed Not on file 12/08 Comments Unknown Sex and Gender Information Value Date Recorded Sex Assigned at Not on file Legal Sex Female 2:40 PM CDT Gender Identity Not on file Sexual Orientation Not on file Obstetrics History Last Filed Vital Signs Vital Sign Reading Time Taken Comments Blood Pressure 116/76 10/04/2024 12:28 PM ADVERTISING PRODUCTION MANAGER Pulse 79 10/04/2024 12:28 PM ADVERTISING PRODUCTION MANAGER Temperature 36.7 ??C (98.1 ??F) 10/04/2024 12:[address] Respiratory Rate 16 10/04/2024 12:28 PM ADVERTISING PRODUCTION MANAGER Oxygen Saturation 99% 10/04/2024 12:28 PM ADVERTISING PRODUCTION MANAGER Inhaled Oxygen Concentration - - Weight 60.3 kg (133 lb) 10/04/2024 12:28 PM ADVERTISING PRODUCTION MANAGER Height 161.3 cm (5' 3.5 ) 10/04/2024 12:28 PM CS T Body Mass Index 23.19 10/04/2024 12:28 PM ADVERTISING PRODUCTION MANAGER Plan of Treatment Health Maintenance Due Date Last Done Comments Depression Screening 1987 Hepatitis C Screening 1987 Varicella Vaccines (1 of 2 - 13+ 2-dose series) 2000 Hepatitis B Screening 2005 Regular Well Visit/Exam 18-64 2005 Cervical Cancer Screening 06/20/2022 06/20/2021 Influenza Vaccine (#1) 2024 DTaP/Tdap/Td Vaccine (2 - Td or Tdap) 04/18/2031 04/18/2021 HPV Vaccines Aged Out No longer eligi ble based on patient's age to complete this topic Pneumococcal vaccine <65 Aged Out No longer eligible based on patient's age to complete this topic Procedures Procedure Name Priority Date/Time Associated Diagnosis Comments THROAT CULTURE Routine 10/04/2024 12:47 PM ADVERTISING PRODUCTION MANAGER POCT RAPID STREP Routine 10/04/2024 12:4 0 PM ADVERTISING PRODUCTION MANAGER Acute non-recurrent maxillary sinusitis POC INFLUENZA A/B, COVID-19 ANTIGEN Routine 10/04/2024 12:39 PM ADVERTISING PRODUCTION MANAGER Acute non-recurrent maxillary sinusitis from Last 3 Months Results * Throat culture Throat (10/04/2024 12:47 PM ADVERTISING PRODUCTION MANAGER) Report Final Report: No growth of pathogens. Comment:Testing performed by : [facility], [address], [place]., [address] Throat 10/04/2024 12:4 7 PM ADVERTISING PRODUCTION MANAGER 10/04/2024 11:50 PM ADVERTISING PRODUCTION MANAGER Narrative ALINA BARRETT - 10/06/2024 10:08 AM ADVERTISING PRODUCTION MANAGER Testing performed by [facility] ([phone]). Sameera Guerrero NP LAB MICROBIOLOGY - GENERAL ORDERABLES Final Result [facility] [address] [place] [address] * POCT rapid strep A (10/04/2024 12:40 PM ADVERTISING PRODUCTION MANAGER) Rapid Strep A, POC Negative Negative Swab 10/04/2024 12:4 0 PM ADVERTISING PRODUCTION MANAGER Sameera Guerrero WOODWORKING MACHINE FEEDER POINT OF CARE TEST ORDERAB LES Final Result * POC Influenza A/B, COVID-19 antigen (10/04/2024 12:39 PM ADVERTISING PRODUCTION MANAGER) Influenza A Ag, POC Negative Negative [facility] Influenza B Ag, POC Negative Negative [facility] COVID-19 Ag POC Presumptive Negative Presumptive Negative, Invalid [facility] Nasal 10/04/2024 12:3 9 PM ADVERTISING PRODUCTION MANAGER Sameera Guerrero WOODWORKING MACHINE FEEDER POINT OF CARE TEST ORDERAB LES Final Result [facility] [address] [place] [address], [facility] from Last 3 Months Insurance [place] Care Teams External Grinder Relationship Specialty Start Date End Date Unknown, Notinfile PCP - General 12/08/23 Unknown, Notinfile 12/08/23
--- OUTSIDE RECORDS SUMMARY | 2024-10-25 22:32 | XMS_ITS | Encounter Summary ---
Author Organization [facility] Healthcare Address [address] [place] [id number] Care Team Providers Care Senior Clinical Study Manager Name Role Phone Unknown, Notinfile Primary Care Provider Unavail able Unknown, Notinfile Unavailable Unavailable Reason for Visit * Reason Comments Cough Present x 5 days Nasal Congestion Sore Throat Encounter Details Date Type Department Care Team (Late st Contact Info) Description 10/04/2024 12:15 PM NUTRITION AIDE Office Visit [facility] at [address] [phone] Sameera Guerrero NP [address] [place] [address] [phone] Acute cough (Primary Dx); Acute non-recurrent maxillary sinusitis Social History Tobacco Use Types Packs/Day Years [...] on file documented as of this encounter Last Filed Vital Signs Vital Sign Reading Time Taken Comments Blood Pressure 116/76 10/04/2024 12:28 PM NUTRITION AIDE Pulse 79 10/04/2024 12:28 PM NUTRITION AIDE Temperature 36.7 ??C (98.1 ??F) 10/04/2024 12:[address] Respiratory Rate 16 10/04/2024 12:28 PM NUTRITION AIDE Oxygen Saturation 99% 10/04/2024 12:28 PM NUTRITION AIDE Inhaled Oxygen Concentration - - Weight 60.3 kg (133 lb) 10/04/2024 12:28 PM NUTRITION AIDE Height 161.3 cm (5' 3.5 ) 10/04/2024 12:28 PM CS T Body Mass Index 23.19 10/04/2024 12:28 PM NUTRITION AIDE documented in this encounter Patient Instructions * Patient Instructions* Sameera Guerrero NP - 10/04/2024 12:15 PM NUTRITION AIDE If you have no improvement or worsening of your symptoms, please follow up with your Primary Care Provider, [facility] and or Emergency Room. I strive to provide you with EXCELLENT service. You may receive a survey after your visit today. If you cannot rate your experience as EXCELLENT, please let us know how we can improve and better meet your needs. Thank you for choosing [facility]! It was my pleasure to see you today, I hope you feel better soon! Sameera Guerrero CONSUMER LOAN MANAGER ITION AIDE * Attachments The following attachments cannot be sent through Care Everywhere. * Sinusitis (AfterCare(R) Instructions(ER/ED)) (Tunisian) documented in this encounter Ordered Prescriptions Prescription Sig Dispense Quantity Refills Last Filled Start Date End Date benzonatate (TESSALON) 100 mg capsuleIndications :Cough Take 1 capsule (100 mg total) by mouth 3 (three) times a day as needed for cough 42 capsule 10/04/2024 amoxicillin-clavul anate (AUGMENTIN) 875-125 mg per tabletIndications: Acute non-recurrent maxillary sinusitis Take 1 tablet by mouth 2 (two) times a day for 10 days 20 tablet 10/04/2024 4 documented in this encounter Progress Notes * Sameera Guerrero NP - 10/04/2024 12:15 PM CST Images from the original note were not included. Subjective/Objective Patient ID: Amy Longoria is a 39 y.o. female. Chief Complaint Cough (Present x 5 days//), Nasal Congestion (/), and Sore Throat 39 year old female patient presents today with complaints of cough, non productive, chest congestion, nasal congestion, and sore throat x 5 days. Denies fever. Denies recent sick contacts. Denies chronic illness. Reports otc dayquil/nyquil. Cough Associated symptoms include a sore throat. Sore Throat Associated symptoms include coughing. Review of Systems HENT: Positive for sore throat. Respiratory: Positive for cough. All other systems reviewed and are negative. Physical Exam Vitals reviewed. Constitutional: Appearance: Normal appearance. She is normal weight. She is not ill-appearing. HENT: Head: Normocephalic. Right Ear: Ear canal and external ear normal. A middle ear effusion (serous) is present. Left Ear: Ear canal and external ear normal. A middle ear effusion (serous) is present. Nose: Right Turbinates: Enlarged. Left Turbinates: Enlarged. Right Sinus: Maxillary sinus tenderness and frontal sinus tenderness present. Left Sinus: Maxillary sinus tenderness and frontal sinus tenderness present. Mouth/Throat: Mouth: Mucous membranes are moist. Pharynx: Oropharynx is clear. Eyes: Pupils: Pupils are equal, round, and reactive to light. Cardiovascular: Rate and Rhythm: Normal rate and regular rhythm. Pulses: Normal pulses. Heart sounds: Normal heart sounds. Pulmonary: Effort: Pulmonary effort is normal. Breath sounds: Normal breath sounds. Musculoskeletal: General: Normal range of motion. Cervical back: Normal range of motion. Skin: General: Skin is warm and dry. Capillary Refill: Capillary refill takes less than 2 seconds. Neurological: General: No focal deficit present. Mental Status: She is alert and oriented to person, place, and time. Mental status is at baseline. Psychiatric: Mood and Affect: Mood normal. Behavior: Behavior normal. Thought Content: Thought content normal. Judgment: Judgment normal. Vitals: 10/04/24 1228 BP: 116/76 BP Location: Left arm Patient Position: Sitting Pulse: 79 Resp: 16 Temp: 36.7 ??C (98.1 ??F) SpO2: 99% Weight: 60.3 kg (133 lb) Height: 161.3 cm (5' 3.5 ) No results found. No past medical history on file. Current Outpatient Medications: FLUoxetine (PROzac) 20 mg capsule, Take 1 capsule (20 mg total) by mouth daily, Disp: , Rfl: ALPRAZolam (XANAX) 2 mg tablet, , Disp: , Rfl: amoxicillin-clavulanate (AUGMENTIN) 875-125 mg per tablet, Take 1 tablet by mouth 2 (two) times a day for 10 days, Disp: 20 tablet, Rfl: 0 benzonatate (TESSALON) 100 mg capsule, Take 1 capsule (100 mg total) by mouth 3 (three) times a dayas needed for cough, Disp: 42 capsule, Rfl: 0 No Known Allergies Social History Tobacco Use Smoking status: Never Smokeless tobacco: Never Substance and Sexual Activity Drug use: None Sexual activity: None Alcohol Use: Not on file Past Surgical History: Procedure Laterality Date APPENDECTOMY BREAST BIOPSY Procedures Assessment/Plan Recent Results (from the past 4 hours) POC Influenza A/B, COVID-19 antigen Collection Time: 10/04/24 12:39 PM Result Value Ref Range Influenza A Ag, POC Negative Negative Influenza B Ag, POC Negative Negative COVID-19 Ag POC Presumptive Negative Presumptive Negative, Invalid POCT rapid strep A Collection Time: 10/04/24 12:40 PM Result Value Ref Range Rapid Strep A, POC Negative Negative Diagnoses and all orders for this visit: Acute cough (Primary) - XR Chest Pa Lateral 2 Views; Future - benzonatate (TESSALON) 100 mg capsule; Take 1 capsule (100 mg total) by mouth 3 (three) times a day as needed for cough Acute non-recurrent maxillary sinusitis - POCT rapid strep A - POC Influenza A/B, COVID-19 antigen - amoxicillin-clavulanate (AUGMENTIN) 875-125 mg per tablet; Take 1 tablet by mouth 2 (two) times aday for 10 days Plan: Patient was given a safety script for Augmentin to cover for sinusitis. Patient has had symptoms x5 days, likely more viral in etiology however if patient is having continued symptoms after 7 days of illness onset she may fill the Augmentin and begin it. Patient was also given an outpatient x-ray order if her symptoms do not improve by Sunday, recommend returning for x-ray to rule out pneumonia. If patient is positive for pneumonia, she will need to be prescribed azithromycin. Patient is able to speak in full sentences without any distress. Disposition Treatment plan including expectations, follow up, and return precautions discussed with patient/parent, verbalizes understanding. Medication dosage, use, and potential adverse reactions discussed with patient/parent. Advised to follow up with PCP if symptoms do not resolve as expected or sooner if condition worsens. Signs/symptoms warranting ER evaluation reviewed. Patient and/or guardian was given an opportunity to ask questions, questions answered. Sameera Guerrero NP ITION AIDE documented in this encounter Plan of Treatment Scheduled Orders Name Type Priority Associated Diagnoses Orde r Schedule XR Chest Pa Lateral 2 Views Imaging Schedule FLORIAN, Read FLORIAN (Appt Today, Awaiting Results) Acute cough Expected: 10/04/2024, Expires: 11/04/2024 documented as of this encounter Procedures Procedure Name Priority Date/Time Associated Diagnosis Comments POCT RAPID STREP Routine 10/04/2024 12:4 0 PM NUTRITION AIDE Acute non-recurrent maxillary sinusitis POC INFLUENZA A/B, COVID-19 ANTIGEN Routine 10/04/2024 12:39 PM NUTRITION AIDE Acute non-recurrent maxillary sinusitis documented in this encounter Results * POCT rapid strep A (10/04/2024 12:40 PM NUTRITION AIDE) Rapid Strep A, POC Negative Negative Swab 10/04/2024 12:4 0 PM NUTRITION AIDE Sameera Guerrero LEVER MILLER POINT OF CARE TEST ORDERAB LES Final Result * POC Influenza A/B, COVID-19 antigen (10/04/2024 12:39 PM NUTRITION AIDE) Influenza A Ag, POC Negative Negative [facility] Influenza B Ag, POC Negative Negative [facility] COVID-19 Ag POC Presumptive Negative Presumptive Negative, Invalid [facility] Nasal 10/04/2024 12:3 9 PM NUTRITION AIDE Sameera Guerrero LEVER MILLER POINT OF CARE TEST ORDERAB LES Final Result [facility] [address] [place] [address] documented in this encounter Visit Diagnoses Diagnosis Acute cough- Primary Acute non-recurrent maxillary sinusitis documented in this encounter Care Teams Senior Clinical Study Manager Relationship Specialty Start Date End Date Unknown, Notinfile PCP - General 12/08/23 Unknown, Notinfile 12/08/23 documented as of this encounter
--- OUTSIDE RECORDS SUMMARY | 2024-10-25 22:32 | XMS_ITS | Encounter Summary ---
Author Organization [facility] Healthcare Address [address] [place] [address] Care Team Providers Care Household Appliances Salesperson Name Role Phone Unknown, Notinfile Primary Care Provider Unavail able Unknown, Notinfile Unavailable Unavailable Reason for Visit * Reason Comments URI Sore throat started on Sunday, hEadache, feverish Encounter Details Date Type Department Care Team (Late st Contact Info) Description 12/08/2023 8:15 AM COMPILATION CLERK Office Visit [facility] at [address] [phone] Linden Rowell, NATHALIA [address] [place] [address] [address] [place], [place] [phone] Influenza B (Primary Dx) Social History Tobacco Use Types Packs/Day Years Used Date Smoking Tobacco: Never Assessed Personal Safety Answer Date Recorded Getting School Help Needed Not on file 12/08 Comments Unknown Sex and Gender Information Value Date Recorded Sex Assigned at Not on file Legal Sex Female 2:40 PM CDT Gender Identity Not on file Sexual Orientation Not on file documented as of this encounter Last Filed Vital Signs Vital Sign Reading Time Taken Comments Blood Pressure 118/76 12/08/2023 8:14 AM COMPILATION CLERK Pulse 100 12/08/2023 8:14 AM COMPILATION CLERK Temperature 37.1 ??C (98.7 ??F) 12/08/2023 8:14 AM CS T Respiratory Rate 16 12/08/2023 8:14 AM COMPILATION CLERK Oxygen Saturation 99% 12/08/2023 8:14 AM COMPILATION CLERK Inhaled Oxygen Concentration - - Weight 60.3 kg (133 lb) 12/08/2023 8:14 AM COMPILATION CLERK Height - - Body Mass Index 22.83 03/29/2020 10:25 AM CDT documented in this encounter Patient Instructions * Patient Instructions* Linden Rowell NP - 12/08/2023 8:15 AM COMPILATION CLERK If you have no improvement or worsening [...] meet your needs. Thank you for choosing [facility]! It was my pleasure to see you today, I hope you feel better soon! Linden Rowell X RAY TECHNOLOGIST ILATION CLERK * Attachments The following attachments cannot be sent through Care Everywhere. * Influenza (Discharge Care) (Estonian) documented in this encounter Progress Notes * Linden Rowell NP - 12/08/2023 8:15 AM CST Images from the original note were not included. Subjective/Objective Patient ID: Amy Longoria is a 38 y.o. female. Chief Complaint URI (Sore throat started on Sunday, hEadache, feverish /) Pt presents to [facility] URI This is a new problem. Episode onset: 4 days ago. The problem has been unchanged. Associated symptoms include congestion, coughing, headaches, rhinorrhea and a sore throat. Pertinent negatives include no abdominal pain, chest pain, diarrhea, ear pain, nausea, neck pain, rash, shortness of breath, si nus pain, sneezing, vomiting or wheezing. Treatments tried: dayquil, nyquil. The treatment providedmild relief. Review of Systems Constitutional: Positive for fever (subjective). Negative for appetite change, chills, diaphoresis and fatigue. HENT: Positive for congestion, rhinorrhea and sore throat. Negative for ear discharge, ear pain, postnasal drip, sinus pressure, sinus pain, sneezing and trouble swallowing. Respiratory: Positive for cough. Negative for chest tightness, shortness of breath and wheezing. Cardiovascular: Negative for chest pain. Gastrointestinal: Negative for abdominal pain, diarrhea, nausea and vomiting. Musculoskeletal: Positive for myalgias. Negative for neck pain and neck stiffness. Skin: Negative for rash. Neurological: Positive for headaches. Negative for dizziness. Hematological: Negative for adenopathy. Physical Exam Vitals and nursing note reviewed. Constitutional: General: She is awake. She is not in acute distress. Appearance: Normal appearance. HENT: Head: Normocephalic and atraumatic. Right Ear: Tympanic membrane and ear canal normal. Left Ear: Tympanic membrane and ear canal normal. Nose: Congestion and rhinorrhea present. Right Sinus: No maxillary sinus tenderness or frontal sinus tenderness. Left Sinus: No maxillary sinus tenderness or frontal sinus tenderness. Mouth/Throat: Lips: Humphrey. Mouth: Mucous membranes are moist. Tongue: Tongue does not deviate from midline. Pharynx: Uvula midline. No pharyngeal swelling, oropharyngeal exudate, posterior oropharyngeal erythema or uvula swelling. Tonsils: No tonsillar exudate or tonsillar abscesses. Eyes: General: Lids are normal. Pupils: Pupils are equal, round, and reactive to light. Cardiovascular: Rate and Rhythm: Normal rate and regular rhythm. Pulses: Normal pulses. Heart sounds: Normal heart sounds. Pulmonary: Effort: Pulmonary effort is normal. No respiratory distress. Breath sounds: Normal breath sounds. No decreased breath sounds, wheezing, rhonchi or rales. Musculoskeletal: Cervical back: Full passive range of motion without pain, normal range of motion and neck supple. Lymphadenopathy: Cervical: No cervical adenopathy. Skin: General: Skin is warm and dry. Neurological: Mental Status: She is alert and oriented to person, place, and time. Gait: Gait normal. Psychiatric: Behavior: Behavior is cooperative. Vitals: 12/08/23 0814 BP: 118/76 Pulse: 100 Resp: 16 Temp: 37.1 ??C (98.7 ??F) SpO2: 99% Weight: 60.3 kg (133 lb) No results found. No past medical history on file. Current Outpatient Medications: FLUoxetine (PROzac) 20 mg capsule, Take 1 capsule (20 mg total) by mouth daily, Disp: , Rfl: ALPRAZolam (XANAX) 2 mg tablet, , Disp: , Rfl: No Known Allergies Social History Tobacco Use Smoking status: Not on file Smokeless tobacco: Not on file Substance and Sexual Activity Drug use: Not on file Sexual activity: Not on file Alcohol Use: Not on file No past surgical history on file. Assessment/Plan Diagnoses and all orders for this visit: Influenza B (Primary) - POCT rapid strep A - POC Influenza A/B, COVID-19 antigen Recent Results (from the past 4 hour(s)) POC Influenza A/B, COVID-19 antigen Collection Time: 12/08/23 8:16 AM Result Value Ref Range Influenza A Ag, POC Negative Negative Influenza B Ag, POC Positive (A) Negative COVID-19 Ag POC Presumptive Negative Presumptive Negative, Invalid POCT rapid strep A Collection Time: 12/08/23 8:16 AM Result Value Ref Range Rapid Strep A, POC Negative Negative Patient Education: Influenza ?? Supportive care is the focus of care with influenza-make sure to stay well- hydrated and treat symptoms with over the counter medications for symptom relief. ?? Take guaifenesin expectorants, i.e. Maximum Strength Mucinex, Robitussin, or store brand for chest congestion. ?? For cough, dextromethorphan (Delsym syrup, Robitussin cough capsules or store brand). Dextromethorphan is considered safe for and breast feeding women. ?? Antihistamine, i.e. Claritin, Zyrtec or Benadryl for nasal drainage, per package directions. ?? Increase oral fluids to at least 2 liters (2 quarts) of non-caffeinated, non- alcoholic beveragesdaily ?? Increase rest, monitor temperature ?? May alternate acetaminophen (Tylenol) and ibuprofen (Motrin or Advil) with food every 4-6 hours for fever, body aches, headache or sore throat. Do not exceed maximum daily dose per package instructions ?? May use hard candy, throat lozenges, Chloraseptic spray or warm salt water gargles to soothe throat ?? Activity as tolerated, Avoid crowds and large groups ?? Avoid spreading germs by washing hands frequently and covering mouth when coughing ?? People with influenza are contagious 1 day before symptoms begin and up to 7 days after getting sick Influenza Follow-up ?? Follow up with the clinic, primary care provider(Unknown, Notinfile) or urgent care if symptoms become more severe. ?? If you begin to feel better, then feel significantly worse, see your primary care provider or [facility] urgent care / ER ?? Call 911 or have someone take you to ER/Urgent Care if any difficulty with breathing or shortness of breath, if you develop high fevers that do not respond to ibuprofen (Advil / Motrin) or acetaminophen (Tylenol) , if you have a hard time awakening or staying awake or become lethargic or confused, or if you develop new stiffness in your neck. If you need to be excused from more than 3 days off from work, please follow-up with your PCP. Disposition Treatment plan including expectations, follow up, and return precautions discussed with patient/parent, verbalizes understanding. Medication dosage, use, and potential adverse reactions discussed with patient/parent. Advised to follow up with PCP if symptoms do not resolve as expected or sooner if condition worsens. Signs/symptoms warranting ER evaluation reviewed. Patient and/or guardian was given an opportunity to ask questions, questions answered. Linden Rowell NP This office note has been partially dictated using SEC Watch software, and as a result portions of the record may have been created with this software. Occasional wrong-word or '[id number]' substitutions may have occurred due to the inherent limitations of voice recognition software. Read the chartcarefully and recognize, using context, where substitutions have occurred. ILATION CLERK documented in this encounter Plan of Treatment Not on file documented as of this encounter Procedures Procedure Name Priority Date/Time Associated Diagnosis Comments POCT RAPID STREP Routine 12/08/2023 8:16 AM COMPILATION CLERK Influenza B POC INFLUENZA A/B, COVID-19 ANTIGEN Routine 12/08/2023 8:16 AM COMPILATION CLERK Influenza B documented in this encounter Results * POCT rapid strep A (12/08/2023 8:16 AM COMPILATION CLERK) Rapid Strep A, POC Negative Negative Swab 12/08/2023 8:16 AM COMPILATION CLERK us Linden Rowell NP POINT OF CARE TEST ORDERABLES F inal Result * (ABNORMAL) POC Influenza A/B, COVID-19 antigen (12/08/2023 8:16 AM COMPILATION CLERK) Influenza A Ag, POC Negative Negative [facility] Influenza B Ag, POC Positive(A) Negative [facility] COVID-19 Ag POC Presumptive Negative Presumptive Negative, Invalid [facility] Nasal 12/08/2023 8:16 AM COMPILATION CLERK iLnden Rowell NP POINT OF CARE TEST ORDERABLES F inal Result Performing Organization Address City/State/[facility] Co de Phone Number [facility] [address] [place] [address] documented in this encounter Visit Diagnoses Diagnosis Influenza B- Primary Influenza with other respiratory manifestations documented in this encounter Historical Medications * This list may reflect changes made after this encounter. FLUoxetine (PROzac) 20 mg capsule Take 1 capsule (20 mg total) by mouth daily ALPRAZolam (XANAX) 2 mg tablet 12/05/2023 added in this encounter Additional Health Concerns Infection Onset Date Last Indicated Resolved Time COVID: Suspected 12/08/2023 12/08/2023 12/08/2023 8:18 AM COMPILATION CLERK Influenza, adult 12/08/2023 12/08/2023 12/15/2023 3:05 AM COMPILATION CLERK documented as of this encounter Care Teams Household Appliances Salesperson Relationship Specialty Start Date End Date Unknown, Notinfile PCP - General 12/08/23 Unknown, Notinfile 12/08/23 documented as of this encounter
--- OUTSIDE RECORDS SUMMARY | 2024-10-25 22:33 | XMS_ITS | Encounter Summary ---
Author Organization [facility] Address [address] [place] [address] Care Team Providers Care Practice Representative Name Role Phone Unknown, Notinfile Primary Care Provider Unavail able Reason for Visit * Reason Onset Date Comments pt would like to be seen 03/23/2020 Encounter Details Date Type Department Care Team (Late st Contact Info) Description 03/23/2020 Telephone [facility] Orthopedics and Sports Medicine [address] [place] [phone] Preethi Cunningham MD [address] [place] [address] pt would like to be seen Social History Tobacco Use Types Packs/Day Years Used Date Smoking Tobacco: Never Assessed Comments Unknown Sex and Gender Information Value Date Recorded Sex Assigned at Not on file Legal Sex Female 2:40 PM CDT Gender Identity Not on file Sexual Orientation Not on file documented as of this encounter Miscellaneous Notes * Telephone Encounter - India Hall - 03/25/2020 1:05 PM CDT Lm for pt to call to set up appointment * Telephone Encounter - India Hall - 03/23/2020 2:40 PM CDT Pt is calling and states that she would like to be seen for her back. 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 Please advise. She can be reached at [phone] documented in this encounter Plan of Treatment Not on file documented as of this encounter Visit Diagnoses Not on filedocumented in this encounter Care Teams Practice Representative Relationship Specialty Start Date End Date Unknown, Notinfile PCP - General 03/25/20 12/07/23 documented as of this encounter
--- OUTSIDE RECORDS SUMMARY | 2024-10-25 22:33 | XMS_ITS | Clinical Summary ---
Author Organization [facility] [place] Address [address] [place] [address] Phone Care Team Providers Care Gill Box Tender Name Role Phone Deny Serrano MD Primary Care Provider +1- [phone] Allergies No known active allergies Medications No known medications Active Problems Patient Care Coordination No te Formatting of this note migh t be different from the original. Primary Care: Deny Serrano MD Referring Provider: Deny Serrano MD [address] [place] [address] Other: Problem Noted Date Diagnosed Date Breast mass 01/19/2014 Kidney stone Family History Medical History Relation Name Comments Diabetes Paternal Grandfather Relation Name Status Comments Paternal Grandfather Social History Tobacco Use Types Packs/Day Years Used Date Smoking Tobacco: Never Smokeless Tobacco: Never Alcohol Use Standard Drinks/Week Comments Yes 0 (1 standard drink = 0.6 oz pur e alcohol) moderate Sex and Gender Information Value Date Recorded Sex Assigned at Not on file Gender Identity Not on file Sexual Orientation Not on file Last Filed Vital Signs Vital Sign Reading Time Taken Comments Blood Pressure 115/72 10/22/2022 12:34 PM FLIGHT PARAMEDIC Pulse 94 10/22/2022 12:34 PM FLIGHT PARAMEDIC Temperature 38.7 ??C (101.7 ??F) 10/22/2022 12:34 PM FLIGHT PARAMEDIC Respiratory Rate - - Oxygen Saturation 97% 10/22/2022 12:34 PM FLIGHT PARAMEDIC Inhaled Oxygen Concentration - - Weight 57.2 kg (126 lb) 10/22/2022 12:34 PM FLIGHT PARAMEDIC Height 160 cm (5' 3 ) 10/22/2022 12:34 PM FLIGHT PARAMEDIC Body Mass Index 22.32 10/22/2022 12:34 PM FLIGHT PARAMEDIC Plan of Treatment Health Maintenance Due Date Last Done Comments HEPATITIS B VACCINES (1 of 3 - 19+ 3-dose series) 2006 CERVICAL CANCER SCREENING 2017 INFLUENZA VACCINE (#1) 2024 DTAP/TDAP/TD VACCINES (2 - T d or Tdap) 04/18/2031 04/18/2021 HPV VACCINES Aged Out No longer eligi ble based on patient's age to complete this topic PNEUMOCOCCAL VACCINE 0-64 YEARS Aged Out No longer eligible based on patient's age to complete this topic Care Teams Gill Box Tender Relationship Specialty Start Date End Date Deny Serrano MD PCP - General Family Practice 01/19/14
--- OUTSIDE RECORDS SUMMARY | 2024-10-25 22:33 | XMS_ITS | Encounter Summary ---
Author Organization [facility] Address [address] [place] [address] Care Team Providers Care Diabetes Solutions Specialist Name Role Phone Deny Serrano MD Primary Care Provider +1- [phone] Reason for Visit * Reason Comments Sore Throat SX STARTED 2-SORE THROAT, CONGESTION, SINUS PRESSURE Encounter Details Date Type Department Care Team (Late st Contact Info) Description 10/22/2022 12:30 PM SUPERVISOR D[employer]URE DEPARTMENT Office Visit [facility] [address] [address] [facility] Lillian Anaya, [facility] [address] [address] Influenza A (Primary Dx); Congestion of respiratory tract; Sore throat; Body aches; Influenza B; COVID-19 virus detected Social History Tobacco Use Types Packs/Day Years Used Date Smoking Tobacco: Never Smokeless Tobacco: Never Alcohol Use Standard Drinks/Week Comments Yes 0 (1 standard drink = 0.6 oz pur e alcohol) moderate Sex and Gender Information Value Date Recorded Sex Assigned at Not on file Gender Identity Not on file Sexual Orientation Not on file COVID-19 Exposure Response Date Recorded In the last 10 days, have yo u been in contact with someone who was confirmed or suspected to have Coronavirus/COVID-19? No / Unsure 10/22/2022 12:27 PM SUPERVISOR D[employer]URE DEPARTMENT documented as of this encounter Last Filed Vital Signs Vital Sign Reading Time Taken Comments Blood Pressure 115/72 10/22/2022 12:34 PM SUPERVISOR D[employer]URE DEPARTMENT Pulse 94 10/22/2022 12:34 PM SUPERVISOR D[employer]URE DEPARTMENT Temperature 38.7 ??C (101.7 ??F) 10/22/2022 12:34 PM SUPERVISOR D[employer]URE DEPARTMENT Respiratory Rate - - Oxygen Saturation 97% 10/22/2022 12:34 PM SUPERVISOR D[employer]URE DEPARTMENT Inhaled Oxygen Concentration - - Weight 57.2 kg (126 lb) 10/22/2022 12:34 PM SUPERVISOR D[employer]URE DEPARTMENT Height 160 cm (5' 3 ) 10/22/2022 12:34 PM SUPERVISOR D[employer]URE DEPARTMENT Body Mass Index 22.32 10/22/2022 12:34 PM SUPERVISOR DENTURE DEPARTMENT documented in this encounter Patient Instructions * Attachments The following attachments cannot be sent through Care Everywhere. * Influenza (Cypriot) * COVID-19: Hospital Safety: General Info (Cypriot) documented in this encounter Progress Notes * Lillian Anaya, WISAM - 10/22/2022 12:30 PM CST HISTORY OF PRESENT ILLNESS Amy Pollard, a 37 y.o. female presents with a Chief Complaint of Sore Throat (SX STARTED 10/21/2022-SORE THROAT, CONGESTION, SINUS PRESSURE) Subjective The history is provided by the patient. Sore Throat Pertinent negatives include no coughing, ear pain, headaches or shortness of breath. Rapid covid, rapid flu and rapid strep for sore throat, body aches and congestion starting yesterday. Patient has not taken any medication for the symptoms REVIEW OF SYSTEMS Review of Systems Constitutional: Positive for fatigue and fever. Negative for chills. Body aches HENT: Positive for rhinorrhea and sore throat. Negative for ear pain. Respiratory: Negative for cough and shortness of breath. Neurological: Negative for headaches. Objective PHYSICAL EXAM BP 115/72 (BP Location: Left arm, Patient Position (BP): Sitting, BP Cuff Size: Adult) Pulse 94 Temp (!) 101.7 ??F (38.7 ??C) (Temporal) Ht 5' 3 (1.6 m) Wt 57.2 kg (126 lb) SpO2 97% BMI 22.32 kg/m?? Physical Exam Constitutional: General: She is not in acute distress. Appearance: She is not ill-appearing. HENT: Mouth/Throat: Pharynx: No pharyngeal swelling or posterior oropharyngeal erythema. Tonsils: No tonsillar exudate. 0 on the right. 0 on the left. Cardiovascular: Rate and Rhythm: Normal rate. Pulmonary: Effort: Pulmonary effort is normal. No respiratory distress. Breath sounds: No wheezing or rhonchi. Musculoskeletal: General: Normal range of motion. Skin: General: Skin is warm. Neurological: Mental Status: She is alert. Psychiatric: Mood and Affect: Mood normal. Plan: *Discussed risks and benefits of medications if prescribed at the visit *OTC medications discussed in regards to symptom management. *Follow up with PMD if there is no improvement in 3 days, or sooner if worse. *See discharge instructions. Discharge instructions given to patient. Medication sent to the pharmacy Results for orders placed or performed in visit on 10/22/22 POC INFLUENZA A AND B ANTIGEN Result Value Ref Range INFLUENZA A AG POC Positive/Detected (A) Negative/Not Detected INFLUENZA B AG POC Positive/Detected (A) Negative/Not Detected INTERNAL KIT QC POC Pass Pass KIT LOT NUMBER POC [id number] KIT EXP DATE POC 01/27/2024 READ METHOD POC Visual POC RAPID STREP A ANTIGEN Result Value Ref Range RAPID STREP POC Negative Negative INTERNAL KIT QC POC Pass Pass KIT LOT NUMBER POC [id number] KIT EXP DATE POC 02/26/2024 READ METHOD POC Visual POC COVID-19 ANTIGEN Result Value Ref Range COVID-19 ANTIGEN POC Positive (A) Presumptively Negative INTERNAL KIT QC POC Pass Pass KIT LOT NUMBER POC [id number] KIT EXP DATE POC 11/13/2023 Procedures Assessment ASSESSMENT and PLAN: ICD-10-CM ICD-9-CM 1. Influenza A J10.1 487.1 oseltamivir (Tamiflu) 75 mg capsule 2. Congestion of respiratory tract J98.8 519.8 POC INFLUENZA A AND B ANTIGEN POC RAPID STREP A ANTIGEN POC COVID-19 ANTIGEN 3. Sore throat J02.9 462 4. Body aches R52 780.96 5. Influenza B J10.1 487.1 oseltamivir (Tamiflu) 75 mg capsule 6. COVID-19 virus detected U07.1 079.89 [facility] documented in this encounter Miscellaneous Notes * Patient Instructions - Lillian Anaya FNP - 10/22/2022 12:30 PM SUPERVISOR D[employer]URE DEPARTMENT Results for orders placed or performed in visit on 10/22/22 POC INFLUENZA A AND B ANTIGEN Result Value Ref Range INFLUENZA A AG POC Positive/Detected (A) Negative/Not Detected INFLUENZA B AG POC Positive/Detected (A) Negative/Not Detected INTERNAL KIT QC POC Pass Pass KIT LOT NUMBER POC [id number] KIT EXP DATE POC 01/27/2024 READ METHOD POC Visual POC RAPID STREP A ANTIGEN Result Value Ref Range RAPID STREP POC Negative Negative INTERNAL KIT QC POC Pass Pass KIT LOT NUMBER POC [id number] KIT EXP DATE POC 02/26/2024 READ METHOD POC Visual POC COVID-19 ANTIGEN Result Value Ref Range COVID-19 ANTIGEN POC Positive (A) Presumptively Negative INTERNAL KIT QC POC Pass Pass KIT LOT NUMBER POC [id number] KIT EXP DATE POC 11/13/2023 COVID - 19 POSITIVE RESULT Patient notified of positive COVID -19 test result. Patient reminded to follow [facility] quarantine guidelines provided during testing visit. Patient should remain in isolation until: At least 5 days have passed since symptoms first appeared. At least 24 hours have passed of being fever free without the use of fever- reducing medications and Respiratory symptoms are improving. Patient to seek medical attention immediately if any worsening symptoms such as: Trouble breathing Persistent pain or pressure in the chest New confusion or inability to arouse Any other concerning symptom. [facility] documented in this encounter Plan of Treatment Not on file documented as of this encounter Procedures Procedure Name Priority Date/Time Associated Diagnosis Comments POC INFLUENZA A AND B ANTIGEN Routine 10/22/2022 12:43 PM SUPERVISOR D[employer]URE DEPARTMENT Congestion of respiratory tract POC RAPID STREP A ANTIGEN Routine 10/22/2022 12:42 PM SUPERVISOR DENTURE DEPARTMENT Congestion of respiratory tract POC COVID-19 ANTIGEN Routine 10/22/2022 12:41 PM SUPERVISOR DENTURE DEPARTMENT Congestion of respiratory tract documented in this encounter Results * (ABNORMAL) POC INFLUENZA A AND B ANTIGEN (10/22/2022 12:43 PM SUPERVISOR DENTURE DEPARTMENT) INFLUENZA A AG POC Positive/D etected(A) Negative/Not Detected [facility] INFLUENZA B AG POC Positive/D etected(A) Negative/Not Detected [facility] INTERNAL KIT QC POC Pass Pass [facility] KIT LOT NUMBER POC [id number] [facility] KIT EXP DATE POC 01/27/2024 [facility] READ METHOD POC Visual [facility] Upper Respiratory ENTIRE NASOPHARYNX / Unknown 10/22/2022 12:43 PM SUPERVISOR DENTURE DEPARTMENT Lillian Anaya EXCEL ANALYST POINT OF CARE FADY DOMENIC Performing Organization Address City/[facility]/ZIP Co de Phone Number [facility] CLIA# [id number] [address] [place] [address] * POC RAPID STREP A ANTIGEN (10/22/2022 12:42 PM SUPERVISOR DENTURE DEPARTMENT) RAPID STREP POC Negative Negative [facility] INTERNAL KIT QC POC Pass Pass [facility] KIT LOT NUMBER POC [id number] [facility] KIT EXP DATE POC 02/26/2024 [facility] READ METHOD POC Visual [facility] Upper Respiratory SPECIMEN FROM THROAT / Unknown 10/22/2022 12:42 PM SUPERVISOR DENTURE DEPARTMENT Lillian Anaya EXCEL ANALYST POINT OF CARE FADY DOMENIC [facility] CLIA# [id number] [address] [place] [address] * (ABNORMAL) POC COVID-19 ANTIGEN (10/22/2022 12:41 PM SUPERVISOR DENTURE DEPARTMENT) COVID-19 ANTIGEN POC Positive( A) Presumptively Negative [facility] INTERNAL KIT QC POC Pass Pass [facility] KIT LOT NUMBER POC [id number] [facility] KIT EXP DATE POC 4 [facility] Upper Respiratory 10/22/2022 12:41 PM SUPERVISOR DENTURE DEPARTMENT Lillian Anaya EXCEL ANALYST POINT OF CARE FADY SHETH [facility] CLIA# [id number] [address] [place] [address] documented in this encounter Visit Diagnoses Diagnosis Influenza A- Primary Influenza with other respiratory manifestations Congestion of respiratory tract Sore throat Acute pharyngitis Body aches Generalized pain Influenza B Influenza with other respiratory manifestations COVID-19 virus detected documented in this encounter Additional Health Concerns Infection Onset Date Last Indicated Resolved Time Influenza 10/22/2022 10/22/2022 10/29/2022 1:17 AM SUPERVISOR D[employer]URE DEPARTMENT COVID-19 10/22/2022 10/22/2022 11/21/2022 1:16 AM SUPERVISOR DENTURE DEPARTMENT documented as of this encounter Care Teams Diabetes Solutions Specialist Relationship Specialty Start Date End Date Deny Serrano MD PCP - General Family Practice 01/19/14 documented as of this encounter
--- OUTSIDE RECORDS SUMMARY | 2024-10-25 22:33 | XMS_ITS | Encounter Summary ---
Author Organization [facility] Address [address] [place] [address] Care Team Providers Care Process Development Technician Name Role Phone Deny Serrano MD Primary Care Provider +1- [phone] Reason for Visit * Radiology Services (Routine) - Closed Specialty Diagnoses / Procedures Referred By Contac t Referred To Contact Diagnoses Encounter for screening mammogram for malignant neoplasm of breast Procedures MAMMO SCRN BILAT 3D JOHN W OR WO CAD MAMMO SCRN BILAT 3D JOHN W OR WO CAD CHG SCREENING MAMMOGRAPHY BI 2-VIEW BREAST INC CAD CHG SCREENING DIGITAL BREAST TOMOSYNTHESIS BI Jordin Oneil MD [address] [address] [place] [address] Referral ID Status Reason Start Date Expiration Date Visits Re quested Visits Authorized [id number] Closed 01/17/2023 02/17/2024 1 1 Encounter Details Date Type Department Care Team (Latest Contact Info) Description 02/01/2023 10:00 AM CDT Ancillary Procedure [facility] [address] [address] [facility], External Provider [address] [place] [address] Encounter for screening mammogram for malignant neoplasm of breast Social History Tobacco Use Types Packs/Day Years [...] suspected to have Coronavirus/COVID-19? No / Unsure 02/01/2023 10:03 AM CDT documented as of this encounter Plan of Treatment Not on file documented as of this encounter Procedures Procedure Name Priority Date/Time Associated Diagnosis Comments MAMMO 3D JOHN SCREEN BILAT W OR WO CAD Routine 02/01/2023 10:25 AM CDT Encounter for screening mammogram for malignant neoplasm of breast documented in this encounter Results * MAMMO SCRN BILAT 3D JOHN W OR WO CAD (02/01/2023 10:25 AM CDT) Anatomical Region Laterality Modality Breast Bilateral Mammography 02/01/2023 10:2 6 AM CDT Impressions 02/01/2023 10:35 AM CDT : ?? BI-RADS Category 2, benign mammogram. ??Recommend yearly bilateral screening mammogram beginning at age 40. ??Yearly or by yearly mammography can be performed prior to age 40 at the discretion of the referring physician. Narrative 02/01/2023 10:35 AM CDT EXAM: ?? MAMMO SCRN BILAT 3D JOHN W OR WO CAD DATE: ??02/01/2023 ?? CLINICAL HISTORY: ?? Baseline screening mammogram in asymptomatic patient with a history of bilateral breast augmentation and no personal or family history of breast cancer TECHNIQUE: Bilateral full field digital mammography was performed in the CC and MLO projections, both including and displacing the implants. Bilateral digital tomosynthesis was also performed in the CC and MLO projections. As this is the patient's baseline mammogram, no prior mammograms are available for comparison. ??A right breast ultrasound performed January 19, 2014 at [facility] was reviewed for comparison. CAD was utilized. FINDINGS: ?The breast parenchyma is extremely dense, which limits the sensitivity of mammography. ??Bilateral subpectoral silicone implants are in place. The implant contours are normal. ?? Calcified oil cysts are identified in the right breast. ??There is no suspicious asymmetry or mass, area of architectural distortion or suspicious microcalcification. ?? Jordin nOeil MD MAMMO ORDERABLES documented in this encounter Visit Diagnoses Diagnosis Encounter for screening mammogram for malignant neoplasm of breast Other screening mammogram documented in this encounter Care Teams Process Development Technician Relationship Specialty Start Date End Date Deny Serrano MD PCP - General Family Practice 01/19/14 documented as of this encounter
--- OUTSIDE RECORDS SUMMARY | 2024-10-25 22:33 | XMS_ITS | Encounter Summary ---
Author Organization [facility] Address [address] [place] [address] Care Team Providers Care Kiss Mixer Name Role Phone Unknown, Notinfile Primary Care Provider Unavail able Encounter Details Date Type Department Care Team (Late st Contact Info) Description 03/31/2020 Telephone [facility] Orthopedics and Sports Medicine [address] [place] [address] Alessia Maravilla MA Social History Tobacco Use Types Packs/Day Years Used Date Smoking Tobacco: Never Smokeless Tobacco: Never Comments Unknown Sex and Gender Information Value Date Recorded Sex Assigned at Not on file Legal Sex Female 2:40 PM CDT Gender Identity Not on file Sexual Orientation Not on file documented as of this encounter Miscellaneous Notes * Telephone Encounter - Lillian Garcia - 04/01/2020 1:30 PM CDT Called and left a Vm I did get Auth she needs to call [facility] and schedule * Telephone Encounter - Alessia Maravilla MA - 03/31/2020 4:49 PM CDT Patient calling asking about her MRI? Please call [phone] documented in this encounter Plan of Treatment Not on file documented as of this encounter Visit Diagnoses Not on filedocumented in this encounter Care Teams Kiss Mixer Relationship Specialty Start Date End Date Unknown, Luis PCP - General 03/25/20 12/07/23 documented as of this encounter
--- OUTSIDE RECORDS SUMMARY | 2024-10-25 22:33 | XMS_ITS | Encounter Summary ---
Author Organization [facility] Address [address] [place] [address] Care Team Providers Care Paralegal Specialist Name Role Phone Deny Serrano MD Primary Care Provider +1- [phone] Encounter Details Date Type Department Care Team (Late st Contact Info) Description 12/14/2023 External Device Data [facility] Provider, Abstract NO ADDRESS ON FILE Social History Tobacco Use Types Packs/Day Years Used Date Smoking Tobacco: Never Smokeless Tobacco: Never Alcohol Use Standard Drinks/Week Comments Yes 0 (1 standard drink = 0.6 oz pur e alcohol) moderate Sex and Gender Information Value Date Recorded Sex Assigned at Not on file Gender Identity Not on file Sexual Orientation Not on file documented as of this encounter Plan of Treatment Not on file documented as of this encounter Visit Diagnoses Not on filedocumented in this encounter Care Teams Paralegal Specialist Relationship Specialty Start Date End Date Deny Serrano MD PCP - General Family Practice 01/19/14 documented as of this encounter
--- OUTSIDE RECORDS SUMMARY | 2024-10-25 22:33 | XMS_ITS | Encounter Summary ---
Author Organization [facility] Address [address] [place] [address] Care Team Providers Care Document Review Specialist Name Role Phone Deny Serrano MD Primary Care Provider +1- [phone] Encounter Details Date Type Department Care Team (Late st Contact Info) Description 12/20/2023 External Device Data [facility]CTION Provider, Abstract [...] on filedocumented in this encounter Care Teams Document Review Specialist Relationship Specialty Start Date End Date Deny Serrano MD PCP - General Family Practice 01/19/14 documented as of this encounter
--- OUTSIDE RECORDS SUMMARY | 2024-10-25 22:33 | XMS_ITS | Encounter Summary ---
Author Organization [facility] Medical Group Address [address] [place] [address] Care Team Providers Care Spike Driver Name Role Phone Unknown, Notinfile Primary Care Provider Unavail able Reason for Referral * Diagnostic Imaging (Routine) - Closed Specialty Diagnoses / Procedures Referred By Contbin t Referred To Contact Diagnoses Back pain, unspecified back location, unspecified back pain laterality, unspecified chronicity Procedures XR Spine Lumbar 2 or 3 Views Preethi [facility] MD Phone: tel: fax: Referral ID Status Reason Start Date Expiration Date Visits Re quested Visits Authorized [id number] Closed 03/29/2020 10/08/2021 1 1 Reason for Visit * Reason Comments Pain Encounter Details Date Type Department Care Team (Late st Contact Info) Description 03/29/2020 10:30 AM CDT Office Visit [facility] Medical [facility] Orthopedics and Sports Medicine [address] [place] [address] [place] [phone] Preethi [facility] MD [address] [place] [address] Chronic bilateral low back pain without sciatica (Primary Dx) Social History Tobacco Use Types [...] Sign Reading Time Taken Comments Blood Pressure 121/86 03/29/2020 10:25 AM CDT Pulse 72 03/29/2020 10:25 AM CDT Temperature - - Respiratory Rate - - Oxygen Saturation - - Inhaled Oxygen Concentration - - Weight 63.5 kg (140 lb) 03/29/2020 10:25 AM CDT Height 162.6 cm (5' 4 ) 03/29/2020 10:25 AM CDT Body Mass Index 24.03 03/29/2020 10:25 AM CDT documented in this encounter Progress Notes * Preethi [facility] MD - 03/29/2020 10:30 AM CDT Images from the original note were not included. NEW PATIENT VISIT Subjective CHIEF COMPLAINT She had concerns including Pain of the Spine. HISTORY OF PRESENT ILLNESS Amy is a well appearing 34-year-old woman with a pleasant affect in no acute distress who presents today with complaints of low back pain which she has had since November, the pain has gotten worse since November. She denies any particular injury. The pain is sharp, dull, aching, karn-ek-wjopfjgv, continuous, activity related. Exercise, sleeping on her stomach makes the pain worse. Walking downhill makes the pain worse. She has been in physical therapy at [facility] for 5 weeks with no relief. She is taking ibuprofen as needed for pain. Denies numbness and tingling. Pain Assessment Pain Assessment: 0-10 Pain Score: 6 Pain Location: Back (Lumbar) Pain Descriptors: Aching, Dull, Sharp Pain Frequency: Constant/continuous PAST MEDCIAL HISTORY History reviewed. No pertinent past medical history. PAST SURGICAL HISTORY She has a past surgical history that includes Appendectomy and Breast biopsy. MEDICATIONS She currently has no medications in their medication list. ALLERGIES She has No Known Allergies. SOCIAL HISTORY She reports that she has never smoked. She has never used smokeless tobacco. FAMILY HISTORY Her family history includes Heart disease in an other family member; Hypertension in an other family member. REVIEW OF SYSTEMS Review of Systems Constitutional: Negative. HENT: Negative. Eyes: Negative. Respiratory: Negative. Cardiovascular: Negative. Gastrointestinal: Negative. Genitourinary: Negative. Musculoskeletal: Negative. Skin: Negative. Neurological: Positive for dizziness and headaches. Psychiatric/Behavioral: Negative. All other systems reviewed and are negative. Objective PHYSICAL EXAM BP 121/86 Pulse 72 Ht 162.6 cm (5' 4 ) Wt 63.5 kg (140 lb) BMI 24.03 kg/m?? Spine Inspection Patient has normal inspection of the thoracic spine. Patient has normal inspection of the lumbar spine. Palpation The patient has normal palaption of the thoracic spine. Tenderness is: present. The patient has tenderness in the paraspinal (iliac crest bl) area. Range of motion The patient has normal thoracic range of motion. The patient has no pain with thoracic range of motion. The patient has reduced lumbar range of motion. The patient has pain with lumbar range of motion. Right strength The patient has 5/5 strength throughout. Left strength Patient has 5/5 strength throughout. Right neurovascular The patient has normal vascular on the right side of their body. The patient has normal light touch sensation. Left neurovascular The patient has normal vascular on the left side of their body. The patient has normal light touch sensation. Right reflexes The patient has normal reflexes on the right side of their body. Left reflexes The patient has normal reflexes on the left side of their body. Tests Right straight leg raise: negative Left straight leg raise: negative negativenegative Core strength 4/5, +stork bilaterally REVIEW OF X-RAYS/STUDIES/LABS XR Spine Lumbar 2 or 3 Views Interpretation lumbar spine two views: Upon my review of the images, negative for fracture dislocation. No periosteal reaction or bone destruction. Disc spaces well maintained, slight narrowing of L5-S1 disc space. Assessment/Plan Amy was seen today for pain. Diagnoses and all orders for this visit: Chronic bilateral low back pain without sciatica - Cancel: XR Spine Lumbar 4 or More Views - XR Spine Lumbar 2 or 3 Views Procedures PLAN Reviewed x-ray images with Amy, recommend MRI of the lumbar spine for further evaluation for spondylolisthesis and stress fracture of the pars interarticularis. We discussed treatment of stress fractures in the lumbar spine. Recommend she avoid those activities that make her pain worse, take over -the-counter medication as needed for pain, ice or heat for 20 minutes as needed for pain and swelling. I will call her with the MRI results which we done at [facility]. She is in full understanding and in agreement with the plan, and all of her questions were answered. Interior Design Project Manager completed by using [employer] Direct speaking software, therefore, transcriptionvariances may occur. Preethi [facility] MD documented in this encounter Plan of Treatment Not on file documented as of this encounter Procedures Procedure Name Priority Date/Time Associated Diagnosis Comments XR SPINE LUMBAR 2 OR 3 VIEWS Schedule Routine, Read Routine (OP Routine) 03/29/2020 1:01 PM CDT Chronic bilateral low back pain without sciatica documented in this encounter Results * XR Spine Lumbar 2 or 3 Views (03/29/2020 1:01 PM CDT) Anatomical Region Laterality Modality Spine N/A Digital Radiogra phy Narrative 03/29/2020 1:01 PM CDT Interpretation lumbar spine two views: Upon my review of the images, negative for fracture dislocation. ??No periosteal reaction or bone destruction. ??Disc spaces well maintained, slight narrowing of L5-S1 disc space. us Preethi [facility] MD IMG XR PROCEDURES Deyanira l Result documented in this encounter Visit Diagnoses Diagnosis Chronic bilateral low back pain without sciatica- Primary documented in this encounter Care Teams Spike Driver Relationship Specialty Start Date End Date Unknown, Notinfile PCP - General 03/25/20 12/07/23 documented as of this encounter
--- OUTSIDE RECORDS SUMMARY | 2024-10-25 22:33 | XMS_ITS | Encounter Summary ---
Author Organization [facility] Address [address] Rucker: Epic Prelude ADT [place] [address] Care Team Providers Care Neck Band Setter Name Role Phone Deny Serrano MD Primary Care Provider +1- [phone] Encounter Details Date Type Department Care Team (Latest Contact Info) Description 10/22/2022 Travel Social History Tobacco Use Types Packs/Day Years [...] Coronavirus/COVID-19? No / Unsure 10/22/2022 12:27 PM INNOVATION MANAGER documented as of this encounter Plan of Treatment Not on file documented as of this encounter Visit Diagnoses Not on filedocumented in this encounter Additional Health Concerns Infection Onset Date Last Indicated Resolved Time Influenza 10/22/2022 10/22/2022 10/29/2022 1:17 AM INNOVATION MANAGER COVID-19 10/22/2022 10/22/2022 11/21/2022 1:16 AM INNOVATION MANAGER documented as of this encounter Care Teams Neck Band Setter Relationship Specialty Start Date End Date Deny Serrano MD PCP - General Family Practice 01/19/14 documented as of this encounter
--- OUTSIDE RECORDS SUMMARY | 2024-10-25 22:33 | XMS_ITS | Encounter Summary ---
Author Organization [facility] Medical Group Address [address] [place] [address] Care Team Providers Care Pack Puller Name Role Phone Unknown, Notinfpayal Primary Care Provider Unavail able Encounter Details Date Type Department Care Team (Late st Contact Info) Description 03/29/2020 Orders Only [facility] Medical Group Orthopedics and Sports Medicine [address] [place] [phone] Preethi [facility] MD [address] [place] [address] Chronic bilateral low back pain without sciatica [...] documented as of this encounter Visit Diagnoses Diagnosis Chronic bilateral low back pain without sciatica- Primary documented in this encounter Care Teams Pack Puller Relationship Specialty Start Date End Date Unknown, Luis PCP - General 03/25/20 12/07/23 documented as of this encounter
--- OUTSIDE RECORDS SUMMARY | 2024-10-25 22:33 | XMS_ITS | Encounter Summary ---
Author Organization [facility] Address [address] Rucker: Epic Prelude ADT [place] [address] Care Team Providers Care Survey Questionnaire Designer Name Role Phone Deny Serrano MD Primary Care Provider +1- [phone] Encounter Details Date Type Department Care Team (Latest Contact Info) Description 01/31/2023 Travel Social History Tobacco Use Types Packs/Day [...] suspected to have Coronavirus/COVID-19? No / Unsure 01/31/2023 12:41 PM CDT documented as of this encounter Plan of Treatment Not on file documented as of this encounter Visit Diagnoses Not on filedocumented in this encounter Care Teams Survey Questionnaire Designer Relationship Specialty Start Date End Date Deny Serrano MD PCP - General Family Practice 01/19/14 documented as of this encounter
--- OUTSIDE RECORDS SUMMARY | 2024-10-25 22:33 | XMS_ITS | Encounter Summary ---
Author Organization [facility] Address [address] [place] [address] Care Team Providers Care Physical Science Professor Name Role Phone Deny Serrano MD Primary Care Provider +1- [phone] Encounter Details Date Type Department Care Team (Late st Contact Info) Description 10/12/2023 External Device Data STL ABSTRACTION Provider, Abstract [...] on filedocumented in this encounter Care Teams Physical Science Professor Relationship Specialty Start Date End Date Deny Serrano MD PCP - General Family Practice 01/19/14 documented as of this encounter
--- OUTSIDE RECORDS SUMMARY | 2024-10-25 22:33 | XMS_ITS | Encounter Summary ---
Author Organization [facility] Medical Group Address [address] [place] [address] Care Team Providers Care Quality Assurance Monitor Name Role Phone Unknown, Notinfile Primary Care Provider Unavail able Reason for Visit * Diagnostic Imaging (Routine) - Closed Specialty Diagnoses / Procedures Referred By Contbin t Referred To Contact Diagnoses Back pain, unspecified back location, unspecified back pain laterality, unspecified chronicity Procedures XR Spine Lumbar 2 or 3 Views Preethi [facility] MD Phone: tel: fax: Referral ID Status Reason Start Date Expiration Date Visits Re quested Visits Authorized [id number] Closed 03/29/2020 10/08/2021 1 1 Encounter Details Date Type Department Care Team (Latest Contact Info) Description 03/29/2020 10:21 AM CDT - 03/29/2020 11:59 PM CDT Hospital Encounter [facility] Orthopedics and Sports Medicine [address] [place] [phone] Discharge Disposition: Discharge to home or self care Social History Tobacco Use Types Packs/Day Years Used Date Smoking Tobacco: Never Smokeless Tobacco: Never Comments Unknown Sex and Gender Information Value Date Recorded Sex Assigned at Not on file Legal Sex Female 2:40 PM CDT Gender Identity Not on file Sexual Orientation Not on file documented as of this encounter Discharge Disposition [...] Result documented in this encounter Visit Diagnoses Not on filedocumented in this encounter Care Teams Quality Assurance Monitor Relationship Specialty Start Date End Date Unknown, Notinfile PCP - General 03/25/20 12/07/23 documented as of this encounter
--- OUTSIDE RECORDS SUMMARY | 2024-10-25 22:33 | XMS_ITS | Encounter Summary ---
Author Organization [facility] Address [address] [place] [address] Care Team Providers Care Subscription Crew Leader Name Role Phone Deny Serrano MD Primary Care Provider +1- [phone] Encounter Details Date Type Department Care Team (Late st Contact Info) Description 01/22/2014 Abstract [facility] BREAST SURGERY - [place] C[place] [address] [place] [address] Becki Galloway MD [address] [facility] [address] [place] [address] Social History Tobacco Use Types Packs/Day Years [...] Name Priority Date/Time Associated Diagnosis Comments MAMMO BREAST US RT COMPLETE Routine 12/05/2013 documented in this encounter Results * MAMMO BREAST US RT (12/05/2013) Anatomical Region Laterality Modality Breast Right Other Irma Sr) Lele MCKEON MAMMO ORDERABLE S documented in this encounter Visit Diagnoses Not on filedocumented in this encounter Care Teams Subscription Crew Leader Relationship Specialty Start Date End Date Deny Serrano MD PCP - General Family Practice 01/19/14 documented as of this encounter
--- OUTSIDE RECORDS SUMMARY | 2024-10-25 22:33 | XMS_ITS | Encounter Summary ---
Author Organization [facility] Address [address] [place] [address] Care Team Providers Care Provider Relations Specialist Name Role Phone Deny Serrano MD Primary Care Provider +1- [phone] Reason for Referral * Outpatient Services (Routine) - Closed Specialty Diagnoses / Procedures Referred By Contac t Referred To Contact Diagnoses Breast mass Procedures MAMMO BREAST US RT Becki Galloway MD [address] [place] [address] Referral ID Status Reason Start Date Expiration Date Visits Re quested Visits Authorized [id number] Closed 01/19/2014 02/19/2015 1 1 Reason for Visit * Reason Comments Breast Mass right breast Encounter Details Date Type Department Care Team (Late st Contact Info) Description 01/19/2014 1:45 PM CDT Office Visit [facility] BREAST SURGERY - [place] [address] [place] [address] Becki Galloway MD [address] [place] [address] Breast mass (Primary Dx) Social History Tobacco Use Types [...] Sign Reading Time Taken Comments Blood Pressure 71/49 01/19/2014 2:04 PM CDT Pulse 67 01/19/2014 2:04 PM CDT Temperature - - Respiratory Rate - - Oxygen Saturation - - Inhaled Oxygen Concentration - - Weight 56.6 kg (124 lb 12.8 oz) 01/19/2014 2:04 PM CDT Height 162.6 cm (5' 4 ) 01/19/2014 2:04 PM CDT Body Mass Index 21.42 01/19/2014 2:04 PM CDT documented in this encounter Progress Notes * Becki Galloway MD - 01/19/2014 2:11 PM CDT PATIENT: Amy Pollard : 1985 DATE: 01/19/2014 Amy Pollard is a 28 y.o. female. She is referred by Dr Serrano because of a lump she found in her upper lateral right breast in 2010. She had breast augmentation surgery in 2010. She is 1, para 1. She was 15 at menarche and 25 at first live . There is no family history of breast orovarian cancer. She works part-time as a [employer]. She is . She drinks a moderate amount.She does not smoke. She is here today with her mother. MANAGER REVIEW HX: OB History Grav Para Term Abortions TAB SAB Ect Mult Living 1 1 1 Obstetric Comments Age @ onset of menses:15 Age @ first live :25 PMH: Past Medical History Diagnosis Date ??? Kidney stone PSH: Past Surgical History Procedure Laterality Date ??? Hx surgical other Right 1993 ??? Hx trigger finger repair Right 2007 right ring finger ??? Hx renal biopsy 2010 ??? Hx breast reduction Bilateral 05/2011 ALLERGY: No Known Allergies MEDS: No current outpatient prescriptions on file. No current facility-administered medications for this visit. FHX: Family History Problem Relation Age of Onset ??? Diabetes Paternal Grandfather SOC: History Social History ??? Marital Status: Spouse Name: N/A Number of Children: 1 ??? Years of Education: N/A Occupational History ??? Social History Main Topics ??? Smoking status: Never Smoker ??? Smokeless tobacco: Never Used ??? Alcohol Use: Yes Comment: moderate ??? Drug Use: No ??? Sexually Active: Yes -- Male partner(s) Control/ Protection: IUD Other Topics Concern ??? Not on file Social History Narrative ??? No narrative on file ROS: Unremarkable Constitutional: Negative for fever, weight loss and malaise/fatigue. Respiratory: Negative for cough. Cardiovascular: Negative for chest pain and leg swelling. Gastrointestinal:. Negative for abdominal pain. Genitourinary: Negative for dysuria. Musculoskeletal: Negative for myalgias and joint pain. Skin: Negative for rash. Neurological: Negative for dizziness and headaches. Psychiatric/Behavioral: Negative for depression Endocrine: Negative for diabetes, negative for thyroid dysfunction Hematologic: Negative for anemia, bleeding disorders, HIV/AIDS BP 71/49 Pulse 67 Ht 5' 4 (1.626 m) Wt 124 lb 12.8 oz (56.609 kg) BMI 21.41 kg/m2 LMP 01/16/2014 ? No PHYSICAL EXAM: Well-developed, well-nourished, pleasant woman. Neck - no thyromegaly no cervical adenopathy SCF- no adenopathy Chest - clear to auscultation Cardiovascular - regular rate and rhythm Axilla -no adenopathy Breasts - Bilateral breast implants intact. No palpable masses. Right breast:normal in appearance, no masses, skin changes or nipple discharge Left breast: normal in appearance, no masses, skin changes or nipple discharge Abdomen - liver and spleen not palpably enlarged Extremities - Good range of motion of shoulders, no lymphedema present IMAGING: outside films are reviewed. Right breast ultrasound: December 05, 2013. [facility]. No solid or cystic masses Right breast ultrasound: 01/19/2014 . Danielle MAN. No solid or cystic masses IMPRESSION /PLAN: 28 y.o. woman who comes in with complaints of palpable lump in the upper outer right breast. I carefully examined her today and feel no dominant masses I obtained a right breast ultrasound to evaluate the area of concern Addendum: Right breast ultrasound done today shows no abnormalities in the area palpable concern to the patient I reviewed the findings with her and reassured her no further intervention is necessary at this time She will return to monthly self breast exams. Continue annual clinical exams with her lead painter. Start annual mammography at the age of 42 per [place] [employer] guidelines. See us back as needed if any new problems arise. Becki Galloway MD.FACS. cc: Deny Serrano MD [address] [id number] documented in this encounter Plan of Treatment Not on file documented as of this encounter Results * MAMMO BREAST US RT (01/19/2014 4:06 PM CDT) Anatomical Region Laterality Modality Breast Right Ultrasound 01/19/2014 4:06 PM CDT Impressions 01/21/2014 12:25 PM CDT IMPRESSION: Today's ultrasound demonstrates no suspicious abnormalities within the upper aspect of the right breast. Clinical followup is recommended. Dictated from Ever Castro Narrative 01/21/2014 12:25 PM CDT RIGHT BREAST ULTRASOUND. ??01/19/14 HISTORY: Palpable abnormality in the upper aspect of the right breast. Technique: A right breast ultrasound was performed. Scanning of the entire upper aspect of the right breast was performed. This demonstrates dense breast tissue. No suspicious solid masses are seen. Overall assessment: BI-RADS category one. Negative. Procedure Note Ena Hopper MD - 01/21/2014 RIGHT BREAST ULTRASOUND. 01/19/14 HISTORY: Palpable abnormality in the upper aspect of the right breast. Technique: A right breast ultrasound was performed. Scanning of the entire upper aspect of the right breast was performed. This demonstrates dense breast tissue. No suspicious solid masses are seen. Overall assessment: BI-RADS category one. Negative. IMPRESSION IMPRESSION: Today's ultrasound demonstrates no suspicious abnormalities within the upper aspect of the right breast. Clinical followup is recommended. Dictated from Ever Castro Becki Galloway MD MAMMO ORDERABLES documented in this encounter Visit Diagnoses Diagnosis Breast mass- Primary Lump or mass in breast Breast mass Lump or mass in breast documented in this encounter Care Teams Provider Relations Specialist Relationship Specialty Start Date End Date Deny Serrano MD PCP - General Family Practice 01/19/14 documented as of this encounter
--- OUTSIDE RECORDS SUMMARY | 2024-10-25 22:33 | XMS_ITS | Encounter Summary ---
Author Organization [facility] Address [address] Rucker: Epic Prelude ADT [place] [address] Care Team Providers Care Pharmacy Tech Customer Service Name Role Phone Deny Serrano MD Primary Care Provider +1- [phone] Encounter Details Date Type Department Care Team (Latest Contact Info) Description 02/01/2023 Travel Social History Tobacco Use Types Packs/Day [...] on filedocumented in this encounter Care Teams Pharmacy Tech Customer Service Relationship Specialty Start Date End Date Deny Serrano MD PCP - General Family Practice 01/19/14 documented as of this encounter
--- OUTSIDE RECORDS SUMMARY | 2024-10-25 22:33 | XMS_ITS | Encounter Summary ---
Author Organization [facility] Address [address] [place] [address] Care Team Providers Care Ethical Hacker Name Role Phone Deny Serrano MD Primary Care Provider +1- [phone] Reason for Referral * Outpatient Services (Routine) - Closed Specialty Diagnoses / Procedures Referred By Cayla ovalles Referred To Contact Diagnoses Breast mass Procedures MAMMO BREAST US RT Becki Galloway MD [address] [facility] [place] [address] Referral ID Status Reason Start Date Expiration Date Visits Re quested Visits Authorized [id number] Closed 01/19/2014 02/19/2015 1 1 Reason for Visit * Outpatient Services (Routine) - Closed Specialty Diagnoses / Procedures Referred By Cayla ovalles Referred To Contact Diagnoses Breast mass Procedures MAMMO BREAST US RT Becki Galloway MD [address] [place] [address] Referral ID Status Reason Start Date Expiration Date Visits Re quested Visits Authorized [id number] Closed 01/19/2014 02/19/2015 1 1 Encounter Details Date Type Department Care Team (Latest Contact Info) Description 01/19/2014 3:32 PM CDT - 01/19/2014 11:59 PM CDT Hospital Encounter [facility] [address] [place] [address] Becki Galloway MD [address] [place] [phone] Discharge Disposition: Home or Self Care Social History Tobacco Use Types Packs/Day Years [...] Comments MAMMO BREAST US RT COMPLETE Routine 01/19/2014 4:06 PM CDT Breast mass documented in this encounter Results * MAMMO [...] in this encounter Visit Diagnoses Diagnosis Breast mass Lump or mass in breast documented in this encounter Care Teams Ethical Hacker Relationship Specialty Start Date End Date Deny Serrano MD PCP - General Family Practice 01/19/14 documented as of this encounter
--- OUTSIDE RECORDS SUMMARY | 2024-10-25 22:43 | XMS_ITS | Encounter Summary ---
Author Organization [facility] Address [address] [place] [address] Care Team Providers Care Gas Substation Operator Name Role Phone Deny Serrano MD Primary Care Provider [phone] Encounter Details Date Type Department Care Team (Late st Contact Info) Description 12/17/2023 External Device Data [facility] ABSTRACTION Provider, Abstract [...] on filedocumented in this encounter Care Teams Gas Substation Operator Relationship Specialty Start Date End Date Deny Serrano MD PCP - General Family Practice 01/19/14 documented as of this encounter
== END 2024-10-18 18:26 | disposition home or self-care (01) ==
PROVIDERS: Emergency Provider Student in an Organized Health Care Education/Training Program; PCP Internal Medicine
DX: R19.7 Diarrhea, unspecified (principal); F41.9 Anxiety disorder, unspecified; Z79.899 Other long term (current) drug therapy
CPT/HCPCS: 36415; 80053; 81025; 83690; 85025; 87493; 96360; 99283; J7120

== ENCOUNTER 2024-12-19 08:26 | Outpatient (CLI) | payer BC, SELFPAY ==
--- NOTE | ~2024-12-19 | MMUS_ITS ---
EXAMINATION: US breast LT complete, MM diag werner implant LT w kash HISTORY: Palpable left breast lump TECHNIQUE: Additional 3-D tomosynthesis images of the left breast were performed and synthetic 2-D im ages were generated. CAD analysis was submitted and interpreted. High resolution complete left breast ultrasound was performed. COMPARISON: None BREAST PARENCHYMAL COMPOSITION: Dense: The breasts are extremely dense, which lowers the sensitivity of mammography. FINDINGS: MAMMOGRAPHIC FINDINGS: There is a subglandular left breast implant. There are no suspicious masses, calcifications or rickey ectural distortion to suggest malignancy. ULTRASOUND: Complete US of all 4 quadrants of the left breast/s and retroareolar region was reviewed. At 2:00, 7 cm from the nipple there is an oval hypoechoic 4 mm mass with echogenic hilum, consistent with intram ammary lymph node. There are cysts at 12:00, 1:00 and 3:00. No suspicious masses to suggest malignanc y. IMPRESSION: 1. No evidence for malignancy in the left breast. 2. Routine yearly screening mammogram and regular clinical breast examination are recommended. BI-RADS Category 2: Benign finding(s). Reviewed, dictated and finalized at location [facility] IMPRESSION: 1. No evidence for malignancy in the left breast. 2. Routine yearly screening mammogram and regular clinical breast examination a re recommended. BI-RADS Category 2: Benign finding(s).
== END 2024-12-19 08:27 | disposition home or self-care (01) ==
LOC: MICIMG 08:27
PROVIDERS: PCP Nurse Practitioner Women's Health; Visit Provider Nurse Practitioner Women's Health
DX: N63.22 Unspecified lump in the left breast, upper inner quadrant (principal); N60.02 Solitary cyst of left breast
CPT/HCPCS: 76641; 77061; 77065; G0279